=== PATIENT | female | born 1955 | race Caucasian/White ===

== ENCOUNTER → 2024-01-08 13:48 | Outpatient (REF) | payer BC, SELFPAY | LOC: HWRAD 13:48 | PROVIDERS: ATTENDING PHYSICIAN Internal Medicine Critical Care Medicine; FAMILY PHYSICIAN Family Medicine | DX: J44.9 Chronic obstructive pulmonary disease, unspecified (principal); R06.09 Other forms of dyspnea; Z95.2 Presence of prosthetic heart valve | CPT/HCPCS: 71046 ==

== ENCOUNTER 2024-03-12 17:39 | Inpatient (IN) | payer BC, MEDICARE, SELFPAY ==
[2024-03-12] VITALS (14 sets, daily range): BP systolic 96–151; BP diastolic 58–93; BMI 18.9
[2024-03-12 12:23] LABS: % Basophils 0.9 % (0-2); % Eosinophils 1.5 % (0-6); % Immature Granulocytes 0.7 % (0-0.5); % Lymphocytes 20.1 % (20.5-51.1); % Monocytes 9.4 % (1.7-9.3); % Neutrophils 67.4 % (42.2-75.2); Absolute Basophils 0.1 10^3/uL (0-0.2); Absolute Eosinophils 0.1 10^3/uL (0-0.7); Absolute Immature Granulocytes 0.1 10^3/uL (0-0.05); Absolute Lymphocytes 1.9 10^3/uL (1.2-3.4); Absolute Monocytes 0.9 10^3/uL (0.1-0.6); Absolute Neutrophils 6.3 10^3/uL (1.4-6.5); Hematocrit 33.3 % (37.0-47.0); Mean Corpuscular Hgb 29.7 pg (27.0-31.0); Mean Platelet Volume 7.9 fL (7.4-10.4); Nucleated Red Blood Cells % 0 %; Platelet Count 302 10^3/uL (130-400); Red Cell Dist. Width 13.4 % (11.5-14.5); White Blood Cell Count 9.4 10^3/uL (4.8-10.8)
[2024-03-12 12:43] LABS: ALT (SGPT) 13 U/L (0-35); AST (SGOT) 30 U/L (14-36); Albumin 3.9 g/dl (3.5-5.0); Alkaline Phosphatase 134 U/L (38-126); Blood Urea Nitrogen 13 mg/dl (7-17); Carbon Dioxide 22 mmol/L (22-30); Chloride 105 mmol/L (98-107); Estimated Creatinine Clearance 60 ml/min; Glucose 118 mg/dl (70-99); Potassium 4.5 mmol/L (3.5-5.1); Sodium 132 mmol/L (135-145); Total Bilirubin 0.5 mg/dl (0.2-1.3); Total Protein 6.6 g/dl (6.3-8.2); eGFR > 60.00
[2024-03-12 12:46] LABS: Troponin I 0.021 ng/ml
--- NOTE | 2024-03-12 12:47 | ED.GENMED ---
History of Present Illness
<ANUM Garcia - Last Filed: 03/12/24 18:27>
General
Chief Complaint: Chest Pain
Source: patient
Exam Limitations: none
Time Seen by Provider: 03/12/24 12:27
Nursing documentation reviewed up to this point in time: agreed with
Travel History
Have you had any contact with someone who has COVID-19?: No
Do you have any symptoms of coronavirus? Fever > 100 degrees, chills, cough, shortness of breath, sore throat, loss of taste or smell, muscle aches, or headache?: No
History of Present Illness
History of Present Illness:
Patient is a 68-year-old female with past medical history of COPD mitral valve replacement August 2023, TIA hypertension presents to the ER for evaluation of chest pain. She reports throughout the night last night she had intermittent chest
tightness and then at 11 AM while at work she developed again left-sided chest pain that went through to her left shoulder area. 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 She was sweaty nauseous and short of breath with
symptoms. She was brought by EMS and given fentanyl Zofran and baby aspirin along with nitroglycerin. She does not feel the nitroglycerin helped her pain.
Past History
<ANUM Garcia - Last Filed: 03/12/24 18:27>
Past History
ED Past Medical History: COPD, Valvular disease (Mitral regurgitation, mitral stenosis) and Psychiatric (anxiety/depression)
ED Past Surgical History: Gynecological (hysterectomy) and Orthopedic (knee)
Social History
Tobacco: Smoker
Alcohol: None
Drug: None
Living: with family
Review of Systems
<ANUM Garcia - Last Filed: 03/12/24 18:27>
Review of Systems
Allergies reviewed?: Yes
All Other Systems: ROS reviewed and negative except as documented in HPI and ROS
Constitutional: Reports no symptoms; Denies fever, fatigue or chills
EENT: Reports no symptoms
Respiratory: Reports trouble breathing
Cardiac: Reports chest pain
ABD/GI: Reports nausea
: Reports no symptoms
Musculoskeletal: Reports no symptoms
Skin: Reports no symptoms
Neurological: Reports no symptoms
Psychiatric: Reports no symptoms
Phy Exam
<ANUM Garcia - Last Filed: 03/12/24 18:27>
General Physical Exam
General Presentation: no apparent distress
General age: appears stated age
General Skin: warm and dry
General Habitus: elderly
General Mental: alert
General Hydration: appears well hydrated
Cardiovascular Exam
Cardiovascular Exam: regular rate/rhythm, no murmur and normal peripheral pulses
Pulmonary Exam
Pulmonary Exam: lungs clear and no respiratory distress
Neurological Exam
Neurological Exam: alert and oriented x3
Musculoskeletal Exam
Musculoskeletal Exam: full ROM
Skin Exam
Skin Exam: normal color and warm/dry
Psychiatric Exam
Psychiatric Exam: normal mood/affect
Scores
<ANUM Garcia - Last Filed: 03/12/24 18:27>
Heart Score for Chest Pain Patients
STEMI patient?: Not applicable
Course
<ANUM Garcia - Last Filed: 03/12/24 18:27>
Orders/Labs/Results
Orders:
Orders
03/12/24 12:11
Electrocardiogram (*1) Urgent
Reason for Study: Chest Pain
Cardiac Monitoring- Treatment ONCE
EKG- Treatment ONCE
IV Insert/Care/Rem.- Treatment PRN
O2 Therapy [RESP] Urgent
Titrate/Wean O2 to maintain O2 sat greater than (%): 90
Special Instructions: Maintain sats >/=90%
Pulse Ox/spot Check [RESP] Urgent
Quantity: 1
Special Instructions: ON ROOM AIR
03/12/24 12:15
C-Reactive Protein Urgent
Complete Blood Count/With Diff Urgent
Comprehensive Metabolic Panel Urgent
Erythrocyte Sed Rate Urgent
Troponin I Urgent
03/12/24 13:01
Ondansetron Injectable [Zofran] 4 mg IV NOW STA
03/12/24 13:12
Nitroglycerin Sublingual [Nitrostat (Sublingual)] 0.4 mg SL [id number] PRN
03/12/24 14:32
Troponin I Urgent
03/12/24 14:35
Ketorolac [Toradol] 30 mg IV NOW STA
03/12/24 14:36
Add On- LAB Urgent
Tests Added?: esr/crp
03/12/24 Dinner
Cholesterol Lowering
At Your Request: Full Participation
Cholesterol Lowering: Sodium, 2 Gram
03/12/24 15:09
Portable Chest Xray [CR Chest Portable - 1 View] Urgent
Comment:
Reason For Exam: cp
Reason Study Needs to be Portable: Other
03/12/24 15:19
Echo 2D MMode Color/Doppler Urgent
Reason for Study: cp trop up avr
Nitroglycerin 100 mg/250 ml [Nitroglycerin Premix] 100 mg in 250 ml IV NOW
Initial dose in mcg/min, then titrate:: 5
Titrate to keep:: SBP < 160 mmHg
Titrate by mcg/min:: 5 mcg/min, may increase by 10 mcg/min if dose > 20 mcg/min
Frequency of titrations (minutes):: every 3-5 minutes
Maximum dose in mcg/min:: 200
Begin to taper infusion when:: Remained at goal for 2hrs
Taper by mcg/min:: 5 mcg/min
Frequency of taper (minutes) if patient maintains goal:: 30
Taper to off?: Yes
If infusion off & no longer maintaining goal:: Contact Provider
03/12/24 15:22
Heparin 3,000 units IV NOW STA
03/12/24 15:[address] Non Medication Order As Directed
Physician Order: PTT 6 hours after initial start of Heparin infusion
Above order entered?: Yes
03/12/24 15:30
Heparin 46643 Units/250 ml 25,000 units in 250 ml IV PER PROTOCOL
Weight to be used for heparin protocol in kilograms (kg):: 49.8
Protocol:: Cardiac Tx/Acute Coronary
PTT Goal Range to be used:: PTT 73 to 111 seconds
Order type:: Initial
INITIAL Infusion Dose (UNITS/KG/hr) & then follow protocol:: 15 units/kg/hr
Infusion Dose in UNITS/hr & then follow protocol (UNITS/hr):: 750
INFUSION RATE in mL/hr & then follow protocol (mL/hr):: 7.5
PTT less than or equal to 64 seconds:: Increase rate by 200 units/hr (+ 2 mL/hr)
PTT 64.1 to 72.9 seconds:: Increase rate by 100 units/hr (+ 1 mL/hr)
PTT 73 to 111 seconds:: Target Range. No change in rate.
PTT 111.1 to 130.9 seconds:: Decrease rate by 100 units/hr (- 1 mL/hr)
PTT 131 to 199.9 seconds:: HOLD for 1 hr. Then decrease rate by 200 units/hr (- 2 mL/hr)
PTT greater than or equal to 200 seconds:: HOLD for 2 hrs & Notify Provider. Then decrease by 200 units/hr (-
2 mL/hr)
Lab follow-up:: Each change, PTT q6h until 2 consecutive are therapeutic. Then PTT
daily.
03/12/24 15:37
PTT Urgent
Comment: Obtain baseline before beginning heparin infusion if not already collected
03/12/24 15:45
Heparin 1000 Units/500 ml [Heparin] 1,000 units in 500 ml .ROUTE .STK-MED
Heparin Sodium,Porcine/Ns/Pf [Heparin 2000 Units/1000 ml] 2,000 unit in 1,000 ml .ROUTE .STK-MED
Lidocaine HCl/Pf [Xylocaine-Mpf 1% Vial] 50 mg .ROUTE .STK-MED ONE
Nitroglycerin [Tridil] 1,500 mcg .ROUTE .STK-MED ONE
Verapamil Injectable [Isoptin/Verapamil Injection] 5 mg .ROUTE .STK-MED ONE
03/12/24 15:49
Fentanyl Citrate/Pf [Sublimaze] 100 mcg .ROUTE .STK-MED ONE
Midazolam HCl [Versed] 2 mg .ROUTE .STK-MED ONE
03/12/24 15:50
Heparin 10,000 units .ROUTE .STK-MED ONE
03/12/24 16:05
Diphenhydramine [Benadryl] 25 mg IV NOW STA
Hydrocortisone Sod Succinate [Solu-Cortef] 200 mg IV NOW STA
03/12/24 16:42
Aspirin Chewable [Low Strength Aspirin] 243 mg .ROUTE .STK-MED ONE
03/12/24 16:53
Admit Patient As Directed
Co-Sign Provider:
Level of Care: Inpatient admission
Assign to:: IVU
Physician / Group: Aimee Mock
Diagnosis: Chest pain
Reason for Hospitalization: chest pain, cardiac cath
Expected length of stay greater than two midnights?: Yes
ELOS- Estimated Length of Stay in days: 2
I certify the patient meets the requirements for IP care: Yes
VTE Contraindication Routine
VTE Mechanical Device Contraindication: Low Risk- LOS < 2 days
Pharmocologic Contraindication: Low Risk- LOS < 2 days
Risk assessment completed and pt is low risk: Yes
03/12/24 16:57
Acetaminophen [Tylenol] 650 mg PO Q4HPRN PRN
Activity As Directed
Activity Level: Out of Bed- Ad Mini
Activity Frequency: Ad Mini
Design Supervisor Procedure As Directed
Cardiac Cath Procedure: cardiac catheterization
Notify MD As Directed
Notify physician if: immediately for chest pain or bleeding from access site(s)
Radial Artery Hemostasis Method As Directed
Instructions:: 3 mL out at 1 hour post placement of band
3 mL out at 1 1/2 hours post placement of band
3 mL out at 2 hours post placement of band
Off at 2 1/2 hours post placement of band
If any oozing or hemotoma occurs:: re-inflate band and call provider
Site Checks As Directed
Check access site for bleeding/hematoma: Yes
Comment: on arrival, Q15min x4, Q30min x2, Q1 hr x2, Q2 hr x2, Q4 hr or per
protocol
Vascular Checks As Directed
Location: distal to access site - pulse check
Frequency: Other
Comment: on arrival, Q15min x4, Q30min x2, Q1 hr x2, Q2 hr x2, Q4 hr or per protocol
Vital Signs As Directed
Frequency: Other
Additional Instructions:: on arrival, Q15min x4, Q30min x2, Q1 hr x2, Q2 hr x2, then Q4 hr or per unit
protocol
03/12/24 17:00
0.9% Sodium Chloride 1000 ml [Nss] 1,000 ml IV PER PROTOCOL
Infusion rate in mL/kg/hr:: 1.5
Infusion rate in mL/hr:: 75
Duration of infusion (hours):: 3
03/13/24 06:00
Basic Metabolic Panel IN AM
Cardiovascular Evaluation IN AM
Complete Blood Count/No Diff IN AM
Abnormal Lab Results
03/12/24 03/12/24
12:15 14:32
RBC 3.70 L 10^6/uL
(4.20-5.40)
Hgb 11.0 L g/dL
(12.0-16.0)
Hct 33.3 L %
(37.0-47.0)
Abs Immat Gran (auto) 0.1 H 10^3/uL
(0-0.05)
Absolute Monos (auto) 0.9 H 10^3/uL
(0.1-0.6)
Immature Gran % 0.7 H %
(0-0.5)
Lymphocytes % 20.1 L %
(20.5-51.1)
Monocytes % 9.4 H %
(1.7-9.3)
Sodium 132 L mmol/L
(135-145)
Glucose 118 H mg/dl
(70-99)
Alkaline Phosphatase 134 H U/L
(38-126)
Troponin I 0.692 H* D ng/ml
03/12/24 12:15
03/12/24 12:15
Vital Signs
Initial and Last Documented VS:
Initial Vital Signs
Temp Pulse Resp BP Pulse Ox
97.9 F 75 15 151/93 100
03/12/24 12:04 03/12/24 12:04 03/12/24 12:04 03/12/24 12:04 03/12/24 12:04
Last Documented Vital Signs
Temp Pulse Resp BP Pulse Ox
97.9 F 70 19 131/84 95
03/12/24 12:04 03/12/24 15:45 03/12/24 15:45 03/12/24 15:00 03/12/24 18:14
Instrument Lens Grinder Apprentice consulted with Physician
Instrument Lens Grinder Apprentice consulted with physician?: Yes
Name of Physician Consulted: Lanette
<Kenroy Myrick, DO - Last Filed: 03/12/24 15:16>
Orders/Labs/Results
Orders:
Orders
03/12/24 12:11
Electrocardiogram (*1) Urgent
Reason for Study: Chest Pain
Cardiac Monitoring- Treatment ONCE
EKG- Treatment ONCE
IV Insert/Care/Rem.- Treatment PRN
O2 Therapy [RESP] Urgent
Titrate/Wean O2 to maintain O2 sat greater than (%): 90
Special Instructions: Maintain sats >/=90%
Pulse Ox/spot Check [RESP] Urgent
Quantity: 1
Special Instructions: ON ROOM AIR
03/12/24 12:15
C-Reactive Protein Urgent
Complete Blood Count/With Diff Urgent
Comprehensive Metabolic Panel Urgent
Erythrocyte Sed Rate Urgent
Troponin I Urgent
03/12/24 13:01
Ondansetron Injectable [Zofran] 4 mg IV NOW STA
03/12/24 13:12
Nitroglycerin Sublingual [Nitrostat (Sublingual)] 0.4 mg SL [id number] PRN
03/12/24 14:32
Troponin I Urgent
03/12/24 14:35
Ketorolac [Toradol] 30 mg IV NOW STA
03/12/24 14:36
Add On- LAB Urgent
Tests Added?: esr/crp
03/12/24 Dinner
Cholesterol Lowering
At Your Request: Full Participation
Cholesterol Lowering: Sodium, 2 Gram
03/12/24 15:09
Portable Chest Xray [CR Chest Portable - 1 View] Urgent
Comment:
Reason For Exam: cp
Reason Study Needs to be Portable: Other
03/12/24 15:19
Echo 2D MMode Color/Doppler Urgent
Reason for Study: cp trop up avr
Nitroglycerin 100 mg/250 ml [Nitroglycerin Premix] 100 mg in 250 ml IV NOW
Initial dose in mcg/min, then titrate:: 5
Titrate to keep:: SBP < 160 mmHg
Titrate by mcg/min:: 5 mcg/min, may increase by 10 mcg/min if dose > 20 mcg/min
Frequency of titrations (minutes):: every 3-5 minutes
Maximum dose in mcg/min:: 200
Begin to taper infusion when:: Remained at goal for 2hrs
Taper by mcg/min:: 5 mcg/min
Frequency of taper (minutes) if patient maintains goal:: 30
Taper to off?: Yes
If infusion off & no longer maintaining goal:: Contact Provider
03/12/24 15:22
Heparin 3,000 units IV NOW STA
03/12/24 15:[address] Non Medication Order As Directed
Physician Order: PTT 6 hours after initial start of Heparin infusion
Above order entered?: Yes
03/12/24 15:30
Heparin 48775 Units/250 ml 25,000 units in 250 ml IV PER PROTOCOL
Weight to be used for heparin protocol in kilograms (kg):: 49.8
Protocol:: Cardiac Tx/Acute Coronary
PTT Goal Range to be used:: PTT 73 to 111 seconds
Order type:: Initial
INITIAL Infusion Dose (UNITS/KG/hr) & then follow protocol:: 15 units/kg/hr
Infusion Dose in UNITS/hr & then follow protocol (UNITS/hr):: 750
INFUSION RATE in mL/hr & then follow protocol (mL/hr):: 7.5
PTT less than or equal to 64 seconds:: Increase rate by 200 units/hr (+ 2 mL/hr)
PTT 64.1 to 72.9 seconds:: Increase rate by 100 units/hr (+ 1 mL/hr)
PTT 73 to 111 seconds:: Target Range. No change in rate.
PTT 111.1 to 130.9 seconds:: Decrease rate by 100 units/hr (- 1 mL/hr)
PTT 131 to 199.9 seconds:: HOLD for 1 hr. Then decrease rate by 200 units/hr (- 2 mL/hr)
PTT greater than or equal to 200 seconds:: HOLD for 2 hrs & Notify Provider. Then decrease by 200 units/hr (-
2 mL/hr)
Lab follow-up:: Each change, PTT q6h until 2 consecutive are therapeutic. Then PTT
daily.
03/12/24 15:37
PTT Urgent
Comment: Obtain baseline before beginning heparin infusion if not already collected
03/12/24 15:45
Heparin 1000 Units/500 ml [Heparin] 1,000 units in 500 ml .ROUTE .STK-MED
Heparin Sodium,Porcine/Ns/Pf [Heparin 2000 Units/1000 ml] 2,000 unit in 1,000 ml .ROUTE .STK-MED
Lidocaine HCl/Pf [Xylocaine-Mpf 1% Vial] 50 mg .ROUTE .STK-MED ONE
Nitroglycerin [Tridil] 1,500 mcg .ROUTE .STK-MED ONE
Verapamil Injectable [Isoptin/Verapamil Injection] 5 mg .ROUTE .STK-MED ONE
03/12/24 15:49
Fentanyl Citrate/Pf [Sublimaze] 100 mcg .ROUTE .STK-MED ONE
Midazolam HCl [Versed] 2 mg .ROUTE .STK-MED ONE
03/12/24 15:50
Heparin 10,000 units .ROUTE .STK-MED ONE
03/12/24 16:05
Diphenhydramine [Benadryl] 25 mg IV NOW STA
Hydrocortisone Sod Succinate [Solu-Cortef] 200 mg IV NOW STA
03/12/24 16:42
Aspirin Chewable [Low Strength Aspirin] 243 mg .ROUTE .STK-MED ONE
03/12/24 16:53
Admit Patient As Directed
Co-Sign Provider:
Level of Care: Inpatient admission
Assign to:: IVU
Physician / Group: Aimee Mock
Diagnosis: Chest pain
Reason for Hospitalization: chest pain, cardiac cath
Expected length of stay greater than two midnights?: Yes
ELOS- Estimated Length of Stay in days: 2
I certify the patient meets the requirements for IP care: Yes
VTE Contraindication Routine
VTE Mechanical Device Contraindication: Low Risk- LOS < 2 days
Pharmocologic Contraindication: Low Risk- LOS < 2 days
Risk assessment completed and pt is low risk: Yes
03/12/24 16:57
Acetaminophen [Tylenol] 650 mg PO Q4HPRN PRN
Activity As Directed
Activity Level: Out of Bed- Ad Mini
Activity Frequency: Ad Mini
Design Supervisor Procedure As Directed
Cardiac Cath Procedure: cardiac catheterization
Notify MD As Directed
Notify physician if: immediately for chest pain or bleeding from access site(s)
Radial Artery Hemostasis Method As Directed
Instructions:: 3 mL out at 1 hour post placement of band
3 mL out at 1 1/2 hours post placement of band
3 mL out at 2 hours post placement of band
Off at 2 1/2 hours post placement of band
If any oozing or hemotoma occurs:: re-inflate band and call provider
Site Checks As Directed
Check access site for bleeding/hematoma: Yes
Comment: on arrival, Q15min x4, Q30min x2, Q1 hr x2, Q2 hr x2, Q4 hr or per
protocol
Vascular Checks As Directed
Location: distal to access site - pulse check
Frequency: Other
Comment: on arrival, Q15min x4, Q30min x2, Q1 hr x2, Q2 hr x2, Q4 hr or per protocol
Vital Signs As Directed
Frequency: Other
Additional Instructions:: on arrival, Q15min x4, Q30min x2, Q1 hr x2, Q2 hr x2, then Q4 hr or per unit
protocol
03/12/24 17:00
0.9% Sodium Chloride 1000 ml [Nss] 1,000 ml IV PER PROTOCOL
Infusion rate in mL/kg/hr:: 1.5
Infusion rate in mL/hr:: 75
Duration of infusion (hours):: 3
03/13/24 06:00
Basic Metabolic Panel IN AM
Cardiovascular Evaluation IN AM
Complete Blood Count/No Diff IN AM
Abnormal Lab Results
03/12/24 03/12/24
12:15 14:32
RBC 3.70 L 10^6/uL
(4.20-5.40)
Hgb 11.0 L g/dL
(12.0-16.0)
Hct 33.3 L %
(37.0-47.0)
Abs Immat Gran (auto) 0.1 H 10^3/uL
(0-0.05)
Absolute Monos (auto) 0.9 H 10^3/uL
(0.1-0.6)
Immature Gran % 0.7 H %
(0-0.5)
Lymphocytes % 20.1 L %
(20.5-51.1)
Monocytes % 9.4 H %
(1.7-9.3)
Sodium 132 L mmol/L
(135-145)
Glucose 118 H mg/dl
(70-99)
Alkaline Phosphatase 134 H U/L
(38-126)
Troponin I 0.692 H* D ng/ml
03/12/24 12:15
03/12/24 12:15
Vital Signs
Initial and Last Documented VS:
Initial Vital Signs
Temp Pulse Resp BP Pulse Ox
97.9 F 75 15 151/93 100
03/12/24 12:04 03/12/24 12:04 03/12/24 12:04 03/12/24 12:04 03/12/24 12:04
Last Documented Vital Signs
Temp Pulse Resp BP Pulse Ox
97.9 F 70 19 131/84 95
03/12/24 12:04 03/12/24 15:45 03/12/24 15:45 03/12/24 15:00 03/12/24 18:14
<ANUM Garcia - Last Filed: 03/12/24 18:27>
MDM/Problems Addressed
Differential Diagnosis Includes:
Not limited to acute coronary syndrome
MDM/Problems Addressed:
1525: Patient is a 68-year-old female with history of mitral valve replacement in September 2023 with clean coronary arteries prior to that presents with chest pain. Patient complains of chest pain that she had off and on last night prior to arrival
this morning while working. She complains of nausea diaphoresis shortness of breath with the. She presented with discomfort here in the ER EMS gave her fentanyl and aspirin. She was given nitroglycerin here in the ER. She had initial troponin of
0.021 however repeat troponin 0.692. No acute elevation on EKG T wave seems slightly peaked the patient's room potassium.
No recent fever illness. she had a cow valve not anticoagulated. case d/c w/ DR Myrick who evaluated patient. Patient was given nitroglycerin which did bring patient's pain to a 3/10. Case discussed with Dr. Gruber . Nitroglycerin iv drip
and iv heparin drip ordered . cardiology to eval.
1624: Pt was seen by cardiology who d/c w/ interventional cardiology
Chronic conditions affecting care:
Mitral valve repair history of COPD history former smoker
<ANUM Garcia - Last Filed: 03/12/24 18:27>
*Radiology
Radiology exam reviewed: radiology read reviewed
*Pulse Oximetry
Patient hypoxic: no
*EKG
Heart Rate: 75
Rate: normal
Rhythm: sinus
Ischemia: no ischemia
Data Reviewed
Review of Other/Old Records Reveals: Other (Cardiac catheter 2022: Severe mitral stenosis normal coronary arteries echo and TYRA suggestive of severe mitral stenosis and severe mitral regurg)
<Kenroy Myrick DO - Last Filed: 03/12/24 15:16>
*Critical Care Note
Total Time (30-74mins, 75-104mins- exclusive of procedures): 30
ED Attending Note
<ANUM Garcia - Last Filed: 03/12/24 18:27>
-
Portions of this chart may have been created with voice recognition software.� Occasional wrong word or��sound alike� substitutions may have occurred due to the inherent limitations of voice recognition software.
<Kenroy Myrick DO - Last Filed: 03/12/24 15:16>
ED Attending Note
Patient seen and examined by attending physician: Yes
I performed the substantive portion of visit, reviewed & personally made and approve the management plan that is documented in note by myself or POONAM.: Yes
ED Attending Note:
Seen with LOG HANDLER examined independently 68-year-old female status post valve surgery records reviewed clean coronaries prior to her valve surgery, presents with some fatigue, patient states she is never quite been right since the surgery today developed
some sharp pain in her chest into her left arm had outpatient surgery on her thumb by Dr. Schmidt yesterday
EKG noted first troponin noted repeat pending chest x-ray pending, family asking about an echo which is not unreasonable
Will ask LOG HANDLER to contact cardiology service patient is a patient of Dr. Fowler
Discharge Plan
Departure
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
Date of Disposition: 03/12/24
Time of Disposition: 17:07
Admit to: labor gang supervisor
Admit to doctor: hospitalist
Presentation/result/management discussed w/ accepting MD/DO: Hospitalist
Patient with high blood pressure during this ER visit?: Yes
Condition: Fair
Covid-19: Not Applicable
Discharge Problem:
Non-ST elevation SD (NSTEMI)
Interventions
Interventions:
*Risk Screen - Suicide Last Done: 03/12/24 17:58
*General Assessment Last Done: 03/12/24 12:04
*Neglect/Abuse Screening Last Done: 03/12/24 12:04
ED- Fall Risk Assessment Last Done: 03/12/24 12:11
*ED COVID-19 Vaccine History Last Done: 03/12/24 17:58
*Nursing Disposition Last Done: 03/12/24 16:37
ED- Cardiac Assessment Last Done: 03/12/24 12:11
[2024-03-12] MEDS: ZOFRAN 4 MG IV (13:07)
[2024-03-12] MEDS: NITROSTAT (SUBLINGUAL) 0.400000000000000022 MG SL (13:17)
[2024-03-12] MEDS: TORADOL 30 MG IV (14:39)
[2024-03-12 14:49] LABS: Erythrocyte Sed Rate 11 mm/hour (0-20)
[2024-03-12 15:08] LABS: Troponin I 0.692 ng/ml
--- NOTE | 2024-03-12 15:41 | CON.CAR ---
Addendum entered and electronically signed by Aimee Mock DO 03/12/24 18:25:
Left heart catheterization reviewed with Dr. Loera. New apical occlusion of the LAD. Otherwise, coronary anatomy remained stable. Plan to resume IV heparin tonight without bolus. Will transition IV heparin to Eliquis 5 mg twice daily tomorrow.
Continue aspirin. Trend troponin levels. Check lipid profile. Plan for TYRA Friday.
Original Note:
Consultation
Consultation Request
Date/Time Consultation Requested: 03/12/2024
Date/Time Consultation Performed: 03/12/2024
Requesting Provider: Dr. Davila
Performing Provider: Dr. Mock
Reason for Consultation: Chest pain
Medical History
-
Chief Complaint: Chest pain
History of Present Illness:
I had the pleasure to meet Maxine Montez in ED bed 24 after she presented to [facility] ED by EMS for chest pain. Maxine follows with my colleague, Dr. Fowler. She is a 68-year-old female she is a 68-year-old female with mixed
pathology, severe mitral stenosis and insufficiency status post mitral valve replacement #29 mm MITRIS RESILIA valve)/(Placement of CV 3 [place]-Fredi to support the posterior medial papillary muscle head), by Dr. Christianson on 09/23/23. Postop she had
pericarditis which resolved. No history of atrial fibrillation but did she did have postop junctional rhythm which resolved. Preoperative cardiac catheterization September 05, [address] Loera found a right dominant system with no obstructive
coronary artery disease. The LAD wraps completely around the inferior wall. Minor luminal irregularities of her ramus. Minor luminal irregularities of a moderate to large caliber dominant RCA. She does have a history of severe atherosclerotic
disease of thoracic aorta, chronic diastolic heart failure secondary to valvular heart disease, severe COPD with [id number] smoking history who quit in April 2023 and follows routinely with Dr. Eddy, hypertension, dyslipidemia, and TIA with
aphasia in 2019. Recently she underwent cyst resection on her left thumb. She has been in her usual state of health until evening when she was woken from sleep with severe chest pain associated with nausea and diaphoresis. Chest pain
lasted throughout the night however she states it was resolved when she woke up this morning. Since the pain had resolved she decided to go to her job at [employer]. While moving close from racks at [employer] she again developed severe 10 out of
10 chest pain. Pain was substernal with radiation to the neck and associated with nausea, dizziness and diaphoresis. She received aspirin by EMS prior to arrival in the emergency department along with nitroglycerin. Nitroglycerin did not
significantly improve her symptoms. She did have some symptom relief with Toradol. She is still 2 out of 10 chest pain with resolved nausea.
PMHx:
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
-Post op anemia, improved status post transfusion
-Chronic HFpEF
-Severe pulm HTN
-HTN
-HLD
-History of TIA
-COPD/history of tobacco use
-Depression/anxiety
Past Medical History
Past Medical History: Other (See HPI)
Past Surgical History: Other (See HPI)
Social History
Tobacco: Former Smoker (50+ year smoking history quit in April 2023)
Alcohol: None
Drug: None
Living: With Family
Employment: Employed (Works for [employer])
Family History
Family History: Reviewed & Not Pertinent
Allergies / Home Medications
Allergy/AdvReac Type Severity Reaction Status Date / Time
iodine [Iodine] Allergy Rash Verified 03/12/24 12:04
metronidazole [From Flagyl] Allergy Rash Verified 03/12/24 12:04
Metronidazole HCl Allergy Rash Verified 03/12/24 12:04
[From Flagyl]
oxycodone HCl [From Percocet] Allergy Vomitting Verified 03/12/24 12:04
and
hallucinations
�Medication �Instructions �Recorded �Confirmed �Type
lorazepam 0.5 mg tablet 0.25 mg PO HS Mental Health/Anxiety 11/20/18 03/12/24 History
umeclidinium 62.5 mcg-vilanterol 1 inh inhalation DAILY copd 03/20/23 03/12/24 History
25 mcg/actuation powdr for
inhalation (Anoro Ellipta)
albuterol sulfate 2.5 mg/3 mL 2.5 mg inhalation DAILY 08/27/23 03/12/24 History
(0.083 %) solution for nebulization
budesonide 0.5 mg/2 mL suspension 0.5 mg inhalation DAILY 08/27/23 03/12/24 History
for nebulization Lung/Breathing Issues
cholecalciferol (vitamin D3) 50 50 mcg PO DAILY Supplement 08/27/23 03/12/24 History
mcg (2,000 unit) capsule (Vitamin
D3)
ibandronate 150 mg tablet 150 mg PO Q30D bone health 08/27/23 03/12/24 History
acetaminophen 500 mg tablet 1,000 mg PO Q6H PRN PAIN 09/03/23 03/12/24 History
atorvastatin 40 mg tablet 40 mg PO HS High Cholesterol 09/03/23 03/12/24 History
fluoxetine 40 mg capsule 40 mg PO DAILY Mental 09/03/23 03/12/24 History
Health/Anxiety
aspirin 81 mg tablet,delayed 81 mg PO DAILY Blood Clot 09/24/23 03/12/24 History
release (Adult Aspirin Regimen) Prevention/Tx
metoprolol succinate 25 mg 12.5 mg (1/2 x 25 mg) PO DAILY 09/27/23 03/12/24 Rx
tablet,extended release 24 hr Blood pressure #90 tabs
albuterol sulfate 90 mcg/actuation 2 puff inhalation R Q4HPRN PRN 03/12/24 03/12/24 History
aerosol inhaler shortness of breath
azithromycin 250 mg tablet 250 mg PO DAILY 03/12/24 03/12/24 History
lorazepam 0.5 mg tablet 0.25 mg PO HS PRN insonmia or 03/12/24 03/12/24 History
anxiety
Review of Systems
-
History Source: Patient and Family
Constitutional: Fatigue
EENT: No Symptoms
Respiratory: Cough (Chronic cough)
Cardiac: Chest Pain and Diaphoresis
Abdomen/GI: Nausea
: No Symptoms
Musculoskeletal: No Symptoms
Skin: No Symptoms
Neurological: Dizzy
Endocrine: No Symptoms
Hematologic/Lymphatic: No Symptoms
Physical Exam
Vital Signs
Temp Pulse Resp BP Pulse Ox
97.9 F 69 17 151/93 99
03/12/24 12:04 03/12/24 12:30 03/12/24 12:30 03/12/24 12:05 03/12/24 12:30
Lab Results
03/12/24 12:15
03/12/24 12:15
Troponin I 0.692 ng/ml H* D 03/12/24 14:32
ECHO 08/01/23: EF 60%, stage II diastolic dysfunction, thickened mitral leaflets with doming of anterior leaflet and MAC, severe MS with peak/mean gradient 44/22 mmHg, MVA by pressure half-time 2.0 cm�, severe MR with flow reversal in pulmonary veins,
mild TR, PAP 47 to 49 mmHg
TYRA 08/27/23: EF 60%, severely dilated left atrium, thickened mitral valve leaflets with restriction and doming of anterior mitral leaflet consistent with rheumatic mitral valve disease, mitral stenosis with elevated mitral valve gradients 25/13 mmHg
at heart rate of 76 bpm, MVA 2.2 cm� by pressure half-time, severe MR
Left heart catheterization 09/05/2023: Right dominant. Left main normal.LEFT ANTERIOR DESCENDING: The LAD arises normally from the left main and runs in the anterior interventricular groove. The LAD is a large-caliber vessel with only minor
irregularities throughout its course. The distal LAD wraps completely around the apex supplying a portion of the inferior wall. RAMUS: Minor irregularities. Small caliber vessel. CIRCUMFLEX: The circumflex is a medium caliber nondominant vessel
supplying a single sizable obtuse marginal branch which is widely patent. RIGHT CORONARY ARTERY: Moderate to large caliber dominant vessel with only mild luminal irregularities
Chest x-ray COPD with no acute abnormality, preliminary read
EKG sinus rhythm no acute ischemic changes.
Physical Exam
General: Other (Cachectic 68-year-old female currently with 2 out of 10 chest pain)
HEENT: Normocephalic, Anicteric and Moist Mucous Membranes
Respiratory: Other (Bronchovesicular breath sounds with scattered rhonchi. Clear)
Cardiac: S1/S2 and Regular Rhythm; Negative Murmur, Rub, Peripheral Edema, Calf Tenderness or JVD
GI: Soft, Non Tender, Non Distended and Normal Bowel Sounds
Skin: Warm and Dry; Negative Rash
Neuro: AO x 3 and Nonfocal/Grossly Intact
Psych: Calm
Impression / Plan
-
Scientist/Engineer: Dr. Kinney
Impression:
-ACS, NSTEMI with chest pain and abnormal cardiac troponin
-S/P Mitral valve replacement (29 mm MITRIS RESILIA valve)/(Placement of CV 3 [place]-Fredi to support the posterior medial papillary muscle head), by Dr. Christianson
-History of postop pericarditis
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
-Severe atherosclerotic disease of thoracic aorta
-Severe pulmonary hypertension secondary to valvular disease and congestive heart failure
-History of diastolic heart failure related to valvular heart disease
-LVEF 55-60% per intraop TYRA
-Recent left thumb surgery for cyst resection
-Malnourishment/cachexia
-Severe COPD; former 50 pk/yr tobacco use quit 04/2023
-Depression/Anxiety
-COVID May 2022, s/p Paxlovid
-HTN
-HLD
-[place]
-hx TIA with assoc. aphasia, 2019
-S/P ORIF right wrist, 2014.
-S/P Breast implants
-S/P Hysterectomy
Plan:
Ongoing chest pain with elevated cardiac troponin and multiple cardiac risk factors concerning for ACS
-Aspirin, IV heparin, will start IV and nitroglycerin drip
-Cardiac troponin 0.021, 0.692. Trend to peak.
-Bedside 2D echocardiogram now
-Discussed with interventional cardiology with plan to reevaluate coronary anatomy with cardiac catheterization
Status post Mitral valve replacement (29 mm MITRIS RESILIA valve)/(Placement of CV 3 [place]-Fredi to support the posterior medial papillary muscle head) for mixed rheumatic severe mitral stenosis/insufficiency 09/23/2023
-2D echocardiogram now
History of severe COPD with prior tobacco dependence
-Appears stable without active flare
History of anemia with stable hemoglobin 11 g/dL
Plan discussed with family at bedside
Data Reviewed
-
EKG: Report Reviewed by me
Radiology: Report Reviewed by me
Labs: Labs Reviewed by me
Old Records: Reviewed
[2024-03-12] MEDS: HEPARIN 25000 UNITS/250 ML IV (15:44)
[2024-03-12] MEDS: HEPARIN 3000 UNITS IV (15:45)
[2024-03-12 15:55] LABS: APTT 28.1 Sec (23.4-35.0)
[2024-03-12 16:09] LABS: C-Reactive Protein < 5.00 mg/L (0.0-10.00)
[2024-03-12] MEDS: SOLU-CORTEF 200 MG IV (16:12)
[2024-03-12] MEDS: BENADRYL 25 MG IV (16:13)
--- NOTE | 2024-03-12 17:18 | ITS.CL.CATH ---
Seismograph Helper - Catheterization
Cardiac Catheterization
Procedure Report:
LEFT HEART CATHETERIZATION
Date of Procedure: March 12, 2024
Referring: Dr. Aimee Mock
PROCEDURES:
1. Left heart catheterization with coronary and single-plane left radiography
INDICATION: This is a 68-year-old female with a past medical history notable for COPD and combined valvular heart disease with mitral stenosis and mitral regurgitation. She underwent coronary angiography in August 2023 that was notable for
nonobstructive coronary artery disease. On September 23, 2023 she underwent standard sternotomy with chordal sparing mitral valve replacement using a 29 mm MITRIS RESILIA valve. Recovery has been slow per her daughters. She now presents for
evaluation of chest discomfort beginning the evening before admission. Her initial troponin was 0.021 nad increased to 0.692 ng/ml on repeat with ongoing low grade chest discomfort. A bedside transthoracic echocardiogram was notable for a mean
mitral gradient of 3 mmHg and a new distal septal, apical and inferoapical wall motion abnormality for which she is now referred for coronary angiography.
ACCESS: Right radial artery, 5 Wolof sheath
HEMODYNAMICS : (mmHg)
AO (s/d) : 133/84
CORONARY FINDINGS
DOMINANCE: Right
LEFT MAIN: Normal
LEFT ANTERIOR DESCENDING: The LAD arises normally from the left main and runs in the anterior interventricular groove. The proximal through distal LAD remained widely patent. The apical LAD becomes subtotally occluded with a small degree of
recanalization as the vessel wraps around the apex.
RAMUS: Small with minor irregularities
CIRCUMFLEX: The circumflex is a medium caliber nondominant vessel that remains angiographically stable with minor luminal irregularities of the single sizable obtuse marginal branch
RIGHT CORONARY ARTERY: The right coronary artery is a moderate caliber dominant vessel with mild luminal irregularities. The PDA and posterolateral branch remain widely patent.
VENTRICULOGRAPHY: Not done
RADIATION SUMMARY: Fluoro Time (min): 1.9, Dose (mGy): 182.6, DAP (Gy.cm2) : 15.8
Closure Device: TR band
CONCLUSIONS
1. Apical occlusion of the LAD. Otherwise, coronary anatomy remained stable
RECOMMENDATIONS
1. May consider oral anticoagulation for several months given recent valve surgery
2. Continue aspirin
3. Trend troponin levels
4. Check fasting lipid profile
Copy to: Dr. Keagan Fowler
--- NOTE | 2024-03-12 17:49 | PTCARENOTE ---
Assumed care of pt upon tsf from CCL post C. Pt arrives awake and alet, Ox3. Right radial band intact with 13 cc's in band. CMS normal throughout extremity. VVS, CM shows NSR 70's, POX 96% on RA. Pt denies any pain or discomfort at this time.
Will continue to monitor closely.
[2024-03-12] MEDS: NSS 1000 IV (17:55)
[2024-03-12] MEDS: LIPITOR 40 MG PO (18:22)
--- NOTE | 2024-03-12 20:00 | PTCARENOTE ---
NSR. VSS. Room air. TR band remains inplace to Right radial. Neurovasc assessment WNL. Air removed slowly from TR band d/t bleeding.
[2024-03-13 04:19] VITALS: BP 109/66
[2024-03-13 04:52] LABS: Hematocrit 36.6 % (37.0-47.0); Hemoglobin 11.9 g/dL (12.0-16.0); Mean Corp Hgb Conc. 32.5 g/dL (33.0-37.0); Mean Corpuscular Hgb 29.8 pg (27.0-31.0); Mean Corpuscular Volume 91.7 fL (81.0-99.0); Mean Platelet Volume 8.2 fL (7.4-10.4); Platelet Count 290 10^3/uL (130-400); Red Blood Cell Count 3.99 10^6/uL (4.20-5.40); Red Cell Dist. Width 13.4 % (11.5-14.5); White Blood Cell Count 12.2 10^3/uL (4.8-10.8)
[2024-03-13 05:16] LABS: Blood Urea Nitrogen 18 mg/dl (7-17); Calcium 9.1 mg/dl (8.4-10.2); Carbon Dioxide 20 mmol/L (22-30); Chloride 106 mmol/L (98-107); Estimated Creatinine Clearance 52 ml/min; Glucose 123 mg/dl (70-99); HDL Cholesterol 65 mg/dl; LDL Cholesterol, Calculated 26 mg/dl; Potassium 5.1 mmol/L (3.5-5.1); Sodium 134 mmol/L (135-145); Total Cholesterol 105 mg/dl (50-199); Triglyceride 70 mg/dl (10-149); Very Low Density Lipoprotein 14 mg/dl (0-30); eGFR > 60.00
[2024-03-13 07:02] VITALS: BP 106/64
[2024-03-13] MEDS: PROTONIX 40 MG PO (08:05)
[2024-03-13] MEDS: LOW STRENGTH ASPIRIN 81 MG PO (08:05)
--- NOTE | 2024-03-13 08:52 | PTCARENOTE ---
Assumed care of pt from night RN. Pt received awake and alert, Ox3. VSS, CM shows NSR 60-70's, POX 94% on RA. Right radial site CDI with normal CMS throughout limb. Pt denies any pain or discomfort at this time, will continue to monitor closely.
[2024-03-13] MEDS: ELIQUIS 5 MG PO ×2 (09:34→20:00)
[2024-03-13 10:34] LABS: Glycohemoglobin (HgbA1c) 5.8 % (4.0-5.6)
[2024-03-13 11:25] VITALS: BP 95/54
[2024-03-13 16:36] VITALS: BP 114/63
--- NOTE | 2024-03-13 17:21 | W.PN.CARDCBS ---
Today's Communication / Plan
-
See plan
Impression / Plan
-
Machine Ironer: Dr. Kinney
Impression:
-ACS, NSTEMI with chest pain and abnormal cardiac troponin
-S/P Mitral valve replacement (29 mm MITRIS RESILIA valve)/(Placement of CV 3 [place]-Fredi to support the posterior medial papillary muscle head), by Dr. Christianson
-History of postop pericarditis
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
-Severe atherosclerotic disease of thoracic aorta
-Severe pulmonary hypertension secondary to valvular disease and congestive heart failure
-History of diastolic heart failure related to valvular heart disease
-LVEF 55-60% per intraop TYRA
-Recent left thumb surgery for cyst resection
-Malnourishment/cachexia
-Severe COPD; former 50 pk/yr tobacco use quit 04/2023
-Depression/Anxiety
-COVID May 2022, s/p Paxlovid
-HTN
-HLD
-[place]
-hx TIA with assoc. aphasia, 2019
-S/P ORIF right wrist, 2014.
-S/P Breast implants
-S/P Hysterectomy
Plan:
Non-STEMI/ACS with apical occlusion of LAD which previously wrapped around inferior wall
-Left heart catheterization reviewed with patient. No stent placed
-Currently chest pain-free
-Peak troponin 3.090 on 03/12 at 20:42
-Plan reviewed with interventional cardiology: Concern for thrombotic event. IV heparin transition to Eliquis and aspirin.
-Continue low-dose beta-ruslan.
-Continue statin with goal LDL less than 70 mg/dL: Lipid profile 03/13/2024: Total cholesterol 105, triglycerides 70, HDL 65, LDL 26.
-Plan for TYRA on Thursday 03/15 given recent valve to assess for cardiac source
-Monitor telemetry
-Will consider outpatient cardiac monitoring
Ischemic cardiomyopathy with new reduction in ejection fraction, EF estimated 25% with the entire apical cap akinetic
-Lasix 20 mg daily started today
-Transition outpatient Toprol succinate to carvedilol
-If blood pressure trends stable will add low-dose DELORIS inhibitor tomorrow
-Would repeat echocardiogram in 3 months
Status post Mitral valve replacement (29 mm MITRIS RESILIA valve)/(Placement of CV 3 [place]-Fredi to support the posterior medial papillary muscle head) for mixed rheumatic severe mitral stenosis/insufficiency 09/23/2023
-Mitral valve replacement functioning well with mean gradient 3 mmHg and no significant mitral regurgitation
Moderate atherosclerotic plaque of the aortic arch extending into the origin of the brachiocephalic vessels without stenosis and plaque of the aortic root and descending aorta on CT chest August 2023
-Continue medical therapy
History of severe COPD/emphysema with prior tobacco dependence/pulmonary hypertension
-Quit smoking in April 2023
-Recent echocardiogram with estimated pulmonary artery pressures 55 mmHg in the setting of active chest pain and evidence of diastolic dysfunction. Would repeat echocardiogram in 3 months to reassess pulmonary pressures. 2D echocardiogram
July 2023 prior to surgery with pulmonary pressures also elevated estimated 47-49% in the setting of severe MR. Right heart catheterization August 2023 with PA pressures 74/35 with a mean of 52 and a wedge pressure of 38 with large V waves.
-Appears stable without active flare
-Maintains regular outpatient follow-up with Dr. Eddy
History of anemia with stable hemoglobin 11 g/dL
Prediabetic with hemoglobin A1c 5.8% similar to June 2020
-Importance of glycemic control stressed
-If renal function remains stable we will start metformin 48 hours following catheterization
Progress Note - Machine Ironer
Subjective
Date of Service: March 13, 2024
Seen and examined. Overall feeling better this morning without chest pain. Reviewed echo and cath findings as well as plan moving forward. Patient is agreeable to transesophageal echocardiogram on Friday.
Objective
Labs:
03/13/24 04:27
03/13/24 04:27
Labs
Hgb 11.9 g/dL (12.0-16.0) L 03/13/24 04:27
Hct 36.6 % (37.0-47.0) L 03/13/24 04:27
Plt Count 290 10^3/uL (130-400) 03/13/24 04:27
APTT Cancelled 03/12/24 21:44
Sodium 134 mmol/L (135-145) L 03/13/24 04:27
Potassium 5.1 mmol/L (3.5-5.1) 03/13/24 04:27
BUN 18 mg/dl (7-17) H 03/13/24 04:27
Creatinine 0.8 mg/dL (0.6-1.0) 03/13/24 04:27
Glucose 123 mg/dl (70-99) H 03/13/24 04:27
Troponins
03/12/24 03/12/24 03/12/24
12:15 14:32 20:42
Troponin I 0.021 0.692 H* D 3.090 H* D
03/13/24 03/13/24
04: 12:30
Troponin I 2.800 H* Cancelled
Vital Signs and I&O:
Vital Signs
Temp Pulse Resp BP Pulse Ox
98.2 F 73 16 114/63 94
03/13/24 16:39 03/13/24 16:39 03/13/24 16:39 03/13/24 16:36 03/13/24 16:39
Vital Signs
Temp Pulse Resp BP Pulse Ox
98.2 F 73 16 114/63 94
03/13/24 16:39 03/13/24 16:39 03/13/24 16:39 03/13/24 16:36 03/13/24 16:39
Physical Exam
Physical Exam
General: No acute distress, AAOX3
Neck: Negative JVD
Heart: Regular, positive S1/S2, No murmur
Lungs: CTA b/l, negative wheezes/rales/rhonchi
Abd: Positive BS, NT/ND, neg rebound/rigidity/guarding
Ext: No edema. Radial site intact.
Neuro: nonfocal
[2024-03-13] MEDS: SPIRIVA RESPIMAT 2.5 MCG INH (17:59)
[2024-03-13] MEDS: PULMICORT INH (17:59)
[2024-03-13] MEDS: VENTOLIN NEBULES INH (17:59)
[2024-03-13] MEDS: STRIVERDI RESPIMAT INH (17:59)
[2024-03-13] MEDS: LASIX 20 MG PO (18:31)
[2024-03-13] MEDS: TOPROL XL 12.5 MG PO (18:32)
[2024-03-13] MEDS: VITAMIN D3 (cholecalciferol) 50 MCG PO (18:32)
[2024-03-13] MEDS: PROZAC 40 MG PO (18:32)
[2024-03-13 18:44] VITALS: BP 110/67
[2024-03-13] MEDS: ZITHROMAX 250 MG PO (20:00)
[2024-03-13] MEDS: LIPITOR 40 MG PO (20:09)
[2024-03-13] MEDS: ATIVAN 0.25 MG PO (20:09)
--- NOTE | 2024-03-13 20:24 | PTCARENOTE ---
Aox3. NSR. VSS. Right radial site WNL. Requests all PM medications @ 1999. Assessment per nursing flowsheet.
[2024-03-14] VITALS (8 sets, daily range): BP systolic 91–111; BP diastolic 51–66; BMI 18.9
[2024-03-14 04:38] LABS: % Basophils 0.9 % (0-2); % Eosinophils 1.3 % (0-6); % Immature Granulocytes 0.9 % (0-0.5); % Lymphocytes 22.3 % (20.5-51.1); % Monocytes 8.5 % (1.7-9.3); % Neutrophils 66.1 % (42.2-75.2); Absolute Basophils 0.1 10^3/uL (0-0.2); Absolute Eosinophils 0.2 10^3/uL (0-0.7); Absolute Immature Granulocytes 0.1 10^3/uL (0-0.05); Absolute Lymphocytes 2.9 10^3/uL (1.2-3.4); Absolute Monocytes 1.1 10^3/uL (0.1-0.6); Absolute Neutrophils 8.5 10^3/uL (1.4-6.5); Hematocrit 36.2 % (37.0-47.0); Hemoglobin 11.8 g/dL (12.0-16.0); Mean Corp Hgb Conc. 32.6 g/dL (33.0-37.0); Mean Corpuscular Hgb 29.6 pg (27.0-31.0); Mean Corpuscular Volume 90.7 fL (81.0-99.0); Nucleated Red Blood Cells % 0 %; Platelet Count 313 10^3/uL (130-400); Red Blood Cell Count 3.99 10^6/uL (4.20-5.40); White Blood Cell Count 12.8 10^3/uL (4.8-10.8)
[2024-03-14 05:16] LABS: Blood Urea Nitrogen 18 mg/dl (7-17); Calcium 9.2 mg/dl (8.4-10.2); Carbon Dioxide 27 mmol/L (22-30); Chloride 106 mmol/L (98-107); Estimated Creatinine Clearance 46 ml/min; Glucose 104 mg/dl (70-99); Sodium 137 mmol/L (135-145); eGFR > 60.00
[2024-03-14] MEDS: PULMICORT 0.5 MG INH (08:06)
[2024-03-14] MEDS: VENTOLIN NEBULES 2.5 MG INH (08:06)
[2024-03-14] MEDS: STRIVERDI RESPIMAT 2 PUFF INH (08:07)
[2024-03-14] MEDS: SPIRIVA RESPIMAT 2.5 MCG 2 PUFF INH (08:07)
[2024-03-14] MEDS: TOPROL XL 12.5 MG PO (08:57)
[2024-03-14] MEDS: LOW STRENGTH ASPIRIN 81 MG PO (08:57)
[2024-03-14] MEDS: LASIX 20 MG PO (08:57)
[2024-03-14] MEDS: PROTONIX 40 MG PO (08:57)
[2024-03-14] MEDS: ELIQUIS 5 MG PO ×2 (08:57→19:32)
[2024-03-14] MEDS: ZITHROMAX 250 MG PO (08:57)
[2024-03-14] MEDS: PROZAC 40 MG PO (09:02)
[2024-03-14] MEDS: VITAMIN D3 (cholecalciferol) 50 MCG PO (09:02)
--- NOTE | 2024-03-14 11:24 | W.PN.CARDCBS ---
Today's Communication / Plan
-
Try to optimize medical therapy for new ischemic cardiomyopathy as able; limited by blood pressure
Plan for TYRA tomorrow 03/15/2024
Heart failure education ongoing
Impression / Plan
-
Mechanical Systems Engineer: Dr. Kinney
Impression:
-ACS, NSTEMI with chest pain and abnormal cardiac troponin
-S/P Mitral valve replacement (29 mm MITRIS RESILIA valve)/(Placement of CV 3 [place]-Fredi to support the posterior medial papillary muscle head), by Dr. Christianson
-History of postop pericarditis
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
-Severe atherosclerotic disease of thoracic aorta
-Severe pulmonary hypertension secondary to valvular disease and congestive heart failure
-History of diastolic heart failure related to valvular heart disease
-LVEF 55-60% per intraop TYRA
-Recent left thumb surgery for cyst resection
-Malnourishment/cachexia
-Severe COPD; former 50 pk/yr tobacco use quit 04/2023
-Depression/Anxiety
-COVID May 2022, s/p Paxlovid
-HTN
-HLD
-[place]
-hx TIA with assoc. aphasia, 2019
-S/P ORIF right wrist, 2014.
-S/P Breast implants
-S/P Hysterectomy
Plan:
Non-STEMI/ACS with apical occlusion of LAD which previously wrapped around inferior wall
-Left heart catheterization reviewed with patient. No stent placed
-Currently chest pain-free
-Peak troponin 3.090 on 03/12 at 20:42
-Plan reviewed with interventional cardiology: Concern for thrombotic event. IV heparin transition to Eliquis and aspirin 03/13/24.
-Continue low-dose beta-ruslan.
-Continue statin with goal LDL less than 70 mg/dL: Lipid profile 03/13/2024: Total cholesterol 105, triglycerides 70, HDL 65, LDL 26.
-Plan for TYRA on Thursday 03/15 given recent valve to assess for cardiac source
-Monitor telemetry
-Will consider outpatient cardiac monitoring
-Cardiac rehab consult on Friday
New ischemic cardiomyopathy with new reduction in ejection fraction, EF estimated 25% with the entire apical cap akinetic
-Lasix 20 mg daily started 03/13/2024
-Continue low-dose Toprol succinate
-If blood pressure trends stable will add low-dose DELORIS inhibitor tomorrow
-Would repeat echocardiogram in 3 months
-CHF diet. CHF education.
Status post Mitral valve replacement (29 mm MITRIS RESILIA valve)/(Placement of CV 3 [place]-Fredi to support the posterior medial papillary muscle head) for mixed rheumatic severe mitral stenosis/insufficiency 09/23/2023
-Mitral valve replacement functioning well with mean gradient 3 mmHg and no significant mitral regurgitation
Moderate atherosclerotic plaque of the aortic arch extending into the origin of the brachiocephalic vessels without stenosis and plaque of the aortic root and descending aorta on CT chest August 2023
-Continue medical therapy
History of severe COPD/emphysema with prior tobacco dependence/pulmonary hypertension
-Quit smoking in April 2023
-Recent echocardiogram with estimated pulmonary artery pressures 55 mmHg in the setting of active chest pain and evidence of diastolic dysfunction. Would repeat echocardiogram in 3 months to reassess pulmonary pressures. 2D echocardiogram
July 2023 prior to surgery with pulmonary pressures also elevated estimated 47-49% in the setting of severe MR. Right heart catheterization August 2023 with PA pressures 74/35 with a mean of 52 and a wedge pressure of 38 with large V waves.
-Appears stable without active flare
-Maintains regular outpatient follow-up with Dr. Eddy
History of anemia with stable hemoglobin 11 g/dL
Prediabetic with hemoglobin A1c 5.8% similar to June 2020
-Importance of glycemic control stressed
-If renal function remains stable we will start metformin 48 hours following catheterization
Progress Note - Mechanical Systems Engineer
Subjective
Date of Service: March 14, 2024
Seen and examined. Patient offers no complaints. Denies lightheadedness. No chest pain or pressure. Does report ongoing shortness of breath slightly improved since yesterday
Objective
Labs:
03/14/24 04:21
03/14/24 04:21
Labs
Hgb 11.8 g/dL (12.0-16.0) L 03/14/24 04:21
Hct 36.2 % (37.0-47.0) L 03/14/24 04:21
Plt Count 313 10^3/uL (130-400) 03/14/24 04:21
APTT Cancelled 03/12/24 21:44
Sodium 137 mmol/L (135-145) 03/14/24 04:21
Potassium 5.0 mmol/L (3.5-5.1) 03/14/24 04:21
BUN 18 mg/dl (7-17) H 03/14/24 04:21
Creatinine 0.9 mg/dL (0.6-1.0) 03/14/24 04:21
Glucose 104 mg/dl (70-99) H 03/14/24 04:21
Troponins
03/12/24 03/12/24 03/12/24
12:15 14:32 20:42
Troponin I 0.021 0.692 H* D 3.090 H* D
03/13/24 03/13/24
04:27 12:30
Troponin I 2.800 H* Cancelled
Vital Signs and I&O:
Vital Signs
Temp Pulse Resp BP Pulse Ox
98.0 F 69 16 111/66 93
03/14/24 11:21 03/14/24 08:57 03/14/24 11:21 03/14/24 08:57 03/14/24 11:21
Vital Signs
Temp Pulse Resp BP Pulse Ox
98.0 F 69 16 111/66 93
03/14/24 11:21 03/14/24 08:57 03/14/24 11:21 03/14/24 08:57 04/21/24 11:21
Intake & Output
03/12/24 03/13/24 03/14/24 03/15/24
06:59 06:59 06:59 06:59
Intake Total 250 / 250 480 / 480
Balance 250 / 250 480 / 480
Physical Exam
Physical Exam
General: No acute distress, AAOX3
Neck: Negative JVD
Heart: Regular, positive S1/S2, No murmur
Lungs: Bronchovesicular breath sounds decreased bilaterally without wheezes
Abd: Positive BS, NT/ND, neg rebound/rigidity/guarding
Ext: No edema. Radial site intact.
Neuro: nonfocal
--- NOTE | 2024-03-14 16:01 | PTCARENOTE ---
Patient received from nightshift RN. Patient denies pain. Fully alert and oriented. Pt has flat affect emotionally. NSR 60s. BP 106/63. Pulses palpable bilaterally in upper and lower extremities. Lungs are clear throughout, denies shortness of
breath. Pt ambulates independently to bathroom to void. Lasix given today. Tolerating meals.
[2024-03-14] MEDS: LIPITOR 40 MG PO (22:05)
[2024-03-14] MEDS: ATIVAN 0.25 MG PO (22:09)
--- NOTE | 2024-03-14 22:32 | PTCARENOTE ---
Pt rec'd at change of shift awake,alert no c/o pain. Flat affect. Sinus with prolonged QT noted on telemetry. Right radial site flotation operator. Pt aware of npo status after mn for TYRA. Ativan given at HS per pt request.
[2024-03-15] VITALS (7 sets, daily range): BP systolic 95–127; BP diastolic 53–75
[2024-03-15 05:26] LABS: Hematocrit 38.6 % (37.0-47.0); Hemoglobin 12.5 g/dL (12.0-16.0); Mean Corp Hgb Conc. 32.4 g/dL (33.0-37.0); Mean Corpuscular Hgb 29.8 pg (27.0-31.0); Mean Corpuscular Volume 91.9 fL (81.0-99.0); Mean Platelet Volume 8.2 fL (7.4-10.4); Platelet Count 304 10^3/uL (130-400); Red Cell Dist. Width 14.1 % (11.5-14.5); White Blood Cell Count 10.1 10^3/uL (4.8-10.8)
[2024-03-15 06:01] LABS: Blood Urea Nitrogen 15 mg/dl (7-17); Calcium 9.3 mg/dl (8.4-10.2); Carbon Dioxide 26 mmol/L (22-30); Chloride 105 mmol/L (98-107); Estimated Creatinine Clearance 60 ml/min; Glucose 104 mg/dl (70-99); Magnesium 2.1 mg/dl (1.6-2.3); Potassium 4.8 mmol/L (3.5-5.1); Sodium 136 mmol/L (135-145); eGFR > 60.00
[2024-03-15] MEDS: STRIVERDI RESPIMAT INH ×2 (08:08→08:43)
[2024-03-15] MEDS: VENTOLIN NEBULES 2.5 MG INH (08:08)
[2024-03-15] MEDS: PULMICORT 0.5 MG INH (08:08)
[2024-03-15] MEDS: SPIRIVA RESPIMAT 2.5 MCG INH ×2 (08:08→08:43)
[2024-03-15] MEDS: LOW STRENGTH ASPIRIN 81 MG PO (08:19)
[2024-03-15] MEDS: ELIQUIS 5 MG PO ×2 (08:19→20:04)
--- NOTE | 2024-03-15 09:30 | W.PN.CARDCBS ---
Today's Communication / Plan
-
Left heart catheterization reviewed with patient. No stent placed
Remains chest pain free. Peak trop 3.
After review with interventional cardiology, concern for thrombotic event.
Pt transitioned to Eliquis and ASA
Continue low-dose beta-ruslan.
Continue statin with goal LDL less than 70 mg/dL: Lipid profile 03/13/2024: Total cholesterol 105, triglycerides 70, HDL 65, LDL 26.
TYRA today was negative for thrombotic source.
Outpt manager monitoring
Cardiac rehab
>New ischemic cardiomyopathy with new reduction in ejection fraction, EF estimated 25% with the entire apical cap akinetic
Cont Lasix 20 mg daily started 03/13/2024
Continue low-dose Toprol succinate
Add low dose Lisinopril 2.5 mg daily.
Would repeat echocardiogram in 3 months after GDMT
HF education.
Impression / Plan
-
Offset Pressman: Dr. Kinney
Impression:
-ACS, NSTEMI with chest pain and abnormal cardiac troponin
-S/P Mitral valve replacement (29 mm MITRIS RESILIA valve)/(Placement of CV 3 [place]-Fredi to support the posterior medial papillary muscle head), by Dr. Christianson
-History of postop pericarditis
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
-Severe atherosclerotic disease of thoracic aorta
-Severe pulmonary hypertension secondary to valvular disease and congestive heart failure
-History of diastolic heart failure related to valvular heart disease
-LVEF 55-60% per intraop TYRA
-Recent left thumb surgery for cyst resection
-Malnourishment/cachexia
-Severe COPD; former 50 pk/yr tobacco use quit 04/2023
-Depression/Anxiety
-COVID May 2022, s/p Paxlovid
-HTN
-HLD
-BURNS PAIUTE
-hx TIA with assoc. aphasia, 2019
-S/P ORIF right wrist, 2014.
-S/P Breast implants
-S/P Hysterectomy
Echo March 12 2024: EF 25% with mid anteroseptal, mid septal and mid anterior and mid lateral and mid inferior and apical akinesis, s/p chordal sparing MVR with mean grad 3 mmHg.
Plan:
>Non-STEMI/ACS with apical occlusion of LAD which previously wrapped around inferior wall
Left heart catheterization reviewed with patient. No stent placed
Remains chest pain free. Peak trop 3.
After review with interventional cardiology, concern for thrombotic event.
Pt transitioned to Eliquis and ASA
Continue low-dose beta-ruslan.
Continue statin with goal LDL less than 70 mg/dL: Lipid profile 03/13/2024: Total cholesterol 105, triglycerides 70, HDL 65, LDL 26.
TYRA today was negative for thrombotic source.
Outpt manager monitoring
Cardiac rehab
>New ischemic cardiomyopathy with new reduction in ejection fraction, EF estimated 25% with the entire apical cap akinetic
Cont Lasix 20 mg daily started 03/13/2024
Continue low-dose Toprol succinate
Add low dose Lisinopril 2.5 mg daily.
Would repeat echocardiogram in 3 months after GDMT
HF education.
Status post Mitral valve replacement (29 mm MITRIS RESILIA valve)/(Placement of CV 3 [place]-Fredi to support the posterior medial papillary muscle head) for mixed rheumatic severe mitral stenosis/insufficiency 09/23/2023
-Mitral valve replacement functioning well with mean gradient 3 mmHg and no significant mitral regurgitation
Moderate atherosclerotic plaque of the aortic arch extending into the origin of the brachiocephalic vessels without stenosis and plaque of the aortic root and descending aorta on CT chest August 2023
-Continue medical therapy
History of severe COPD/emphysema with prior tobacco dependence/pulmonary hypertension
-Quit smoking in April 2023
-Recent echocardiogram with estimated pulmonary artery pressures 55 mmHg in the setting of active chest pain and evidence of diastolic dysfunction. Would repeat echocardiogram in 3 months to reassess pulmonary pressures. 2D echocardiogram
July 2023 prior to surgery with pulmonary pressures also elevated estimated 47-49% in the setting of severe MR. Right heart catheterization August 2023 with PA pressures 74/35 with a mean of 52 and a wedge pressure of 38 with large V waves.
-Maintains regular outpatient follow-up with Dr. Eddy
History of anemia with stable hemoglobin 12.5 g/dL
Prediabetic with hemoglobin A1c 5.8% similar to June 2020
-Importance of glycemic control stressed
-If renal function remains stable we will start metformin 48 hours following catheterization
Progress Note - Offset Pressman
Subjective
Date of Service: March 15, 2024
Pt seen and examined. No complaints. No chest pain or shortness of breath.
Objective
Labs:
03/15/24 05:09
03/15/24 05:09
Labs
Hgb 12.5 g/dL (12.0-16.0) 03/15/24 05:09
Hct 38.6 % (37.0-47.0) 03/15/24 05:09
Plt Count 304 10^3/uL (130-400) 03/15/24 05:09
APTT Cancelled 03/12/24 21:44
Sodium 136 mmol/L (135-145) 03/15/24 05:09
Potassium 4.8 mmol/L (3.5-5.1) 03/15/24 05:09
BUN 15 mg/dl (7-17) 03/15/24 05:09
Creatinine 0.7 mg/dL (0.6-1.0) 03/15/24 05:09
Glucose 104 mg/dl (70-99) H 03/15/24 05:09
Troponins
03/12/24 03/12/24 03/12/24
12:15 14:32 20:42
Troponin I 0.021 0.692 H* D 3.090 H* D
03/13/24 03/13/24
04:27 12:30
Troponin I 2.800 H* Cancelled
Vital Signs and I&O:
Vital Signs
Temp Pulse Resp BP Pulse Ox
98 F 65 16 117/73 97
03/15/24 07:13 03/15/24 08:13 03/15/24 08:13 03/15/24 05:02 03/15/24 08:13
Vital Signs
Temp Pulse Resp BP Pulse Ox
98 F 65 16 117/73 97
03/15/24 07:13 03/15/24 08:13 03/15/24 08:13 03/15/24 05:02 03/15/24 08:13
Intake & Output
03/13/24 03/14/24 03/15/24 03/16/24
06:59 06:59 06:59 06:59
Intake Total 250 / 250 1440 / 1440
Output Total 525 / 525
Balance 250 / 250 915 / 915
Physical Exam
Physical Exam
General: No acute distress, AAOX3
Neck: Negative JVD
Heart: Regular, Negative S3 positive S1/S2, Negative S4, No murmur
Lungs: CTA b/l, negative wheezes/rales/rhonchi
Abd: Positive BS, NT/ND, neg rebound/rigidity/guarding
Ext: Negative cyanosis/clubbing/edema
Neuro: nonfocal
[2024-03-15] MEDS: ZESTRIL 2.5 MG PO (11:35)
[2024-03-15] MEDS: LASIX 20 MG PO (11:36)
[2024-03-15] MEDS: ZITHROMAX 250 MG PO (11:36)
[2024-03-15] MEDS: VITAMIN D3 (cholecalciferol) 50 MCG PO (11:36)
[2024-03-15] MEDS: PROTONIX 40 MG PO (11:36)
[2024-03-15] MEDS: PROZAC 40 MG PO (11:36)
[2024-03-15] MEDS: TOPROL XL 12.5 MG PO (11:36)
--- NOTE | 2024-03-15 12:42 | CM ---
Chart reviewed. Patient is independent of ADLS, lives with her daugter, son in law, their family and her son in a 2 STH, 2 CRIS, 0 DME. Patient currently with no discharge needs. Plan is for the patient to return home. CM to follow
--- NOTE | 2024-03-15 12:43 | CM ---
Pricing on Eliquis 5mg BID through the patient's [facility], is $25 a month. The patient qualifies for the $10 copay card. I will place this in the patient's red discharge folder.
[2024-03-15] MEDS: LIPITOR 40 MG PO (20:07)
[2024-03-15] MEDS: ATIVAN 0.25 MG PO (20:07)
--- NOTE | 2024-03-15 21:14 | PTCARENOTE ---
Pt rec'd at change of shift awake,alert flat affect. No c/o pain other than little 'soreness' at left thumb (cyst removal pre hospital). Sinus on telemetry. Pt with some crackles noted in bases. Pt denies cough. right radial iste antonino with good
pulse,no hematoma noted.
[2024-03-16] VITALS (9 sets, daily range): BP systolic 89–111; BP diastolic 48–61
[2024-03-16] MEDS: SPIRIVA RESPIMAT 2.5 MCG 2 PUFF INH (08:08)
[2024-03-16] MEDS: STRIVERDI RESPIMAT 2 PUFF INH (08:08)
[2024-03-16] MEDS: VENTOLIN NEBULES 2.5 MG INH (08:08)
[2024-03-16] MEDS: PULMICORT 0.5 MG INH (08:08)
[2024-03-16] MEDS: LASIX 20 MG PO (08:35)
[2024-03-16] MEDS: ZITHROMAX 250 MG PO (08:35)
[2024-03-16] MEDS: LOW STRENGTH ASPIRIN 81 MG PO (08:35)
[2024-03-16] MEDS: ELIQUIS 5 MG PO ×2 (08:35→19:46)
[2024-03-16] MEDS: PROTONIX 40 MG PO (08:35)
[2024-03-16] MEDS: VITAMIN D3 (cholecalciferol) 50 MCG PO (08:35)
[2024-03-16] MEDS: ZESTRIL 2.5 MG PO (08:35)
[2024-03-16] MEDS: PROZAC 40 MG PO (08:35)
[2024-03-16] MEDS: TOPROL XL 12.5 MG PO (08:36)
--- NOTE | 2024-03-16 11:35 | CM ---
Chart reviewed. Patient is independent of ADLS, lives with her daughter and family, and son in a 2 STH, 2 CRIS, 0 DME. Patient currently with no discharge needs. Plan is for the patient to return home. CM to follow
--- NOTE | 2024-03-16 11:41 | W.PN.CARDCBS ---
Addendum entered and electronically signed by Olivia Lombardi MD 03/16/24 20:54:
I saw and examined the patient.
The Razor Sharpener's note was reviewed and I agree with the note.
Comment: Complains of intermittent chest discomfort and SOB.
Vitals reviewed. Labwork and cath/TYRA reviewed with trop peak of 3.
Exam with female appearing older than stated age, frail, cachectic, awake, alert, oriented x 3, +JVD, Lungs with bibasilar rales, RR, normal S1 and S2. no m/r/g, abd soft, NT, ND, + BS, trace LE edema
Echo with stable Mitral valve repair. LVEF seems out ot proportion for Apical LAD occlusion
Reccs:
1. Cardiomyopathy seems out of proportion to apical LAD occlusion. Concern based on new apical occlusion with recent mitral valve surgery would be for possible thrombus though not obvious on TYRA. Discussed with CT surgery and eliquis started.
2. GDMT for new cardiomyopathy, optimize as hemodynamics will allow, along with IV diuresis. Look into cost of SGLT2-i. Plan for repeat TTE in 3 mos to reassess LVEF on GDMT.
3. Close monitoring of renal fxn, ins and outs, daily weights and lytes.
4. Monitor for afib.
Olivia Lombardi MD
Original Note:
Today's Communication / Plan
-
IV lasix
GDMT of new CM - assess cost of jardiance
eliquis started
OP manager cardiac upon DC
Impression / Plan
-
File Clerk: Dr. Kinney
Impression:
-ACS, NSTEMI with chest pain and abnormal cardiac troponin
-s/p cath 03/12/24 with apical occlusion of LAD
-NICM, EF newly 25-30%
-Acute HFrEF
-S/P Mitral valve replacement (29 mm MITRIS RESILIA valve)/(Placement of CV 3 [place]-Fredi to support the posterior medial papillary muscle head), by Dr. Christianson 09/2023
-History of postop pericarditis
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
-Severe atherosclerotic disease of thoracic aorta
-Severe pulmonary hypertension secondary to valvular disease and congestive heart failure
-History of diastolic heart failure related to valvular heart disease
-LVEF 55-60% per intraop TYRA
-Recent left thumb surgery for cyst resection
-Malnourishment/cachexia
-Severe COPD; former 50 pk/yr tobacco use quit 04/2023
-Depression/Anxiety
-COVID May 2022, s/p Paxlovid
-HTN
-HLD
-IQUGMIUT
-hx TIA with assoc. aphasia, 2019
-S/P ORIF right wrist, 2014.
-S/P Breast implants
-S/P Hysterectomy
Echo March 12 2024: EF 25% with mid anteroseptal, mid septal and mid anterior and mid lateral and mid inferior and apical akinesis, s/p chordal sparing MVR with mean grad 3 mmHg.
Plan:
-She presented with episode of chest pain and diaphoresis. Ruled in for NSTEMI with troponin which peaked at 3
-Status post cardiac catheterization 03/12 with apical occlusion of LAD, no intervention performed
-Echocardiogram with new EF 25%, had been normal pre and post mitral valve replacement. Cardiomyopathy appears out of proportion to cardiac catheterization findings
-Concern for distal LAD occlusion to be thrombotic event. She did not have postop A-fib, however concern for possible intermittent arrhythmia. in SR upon review of tele. She had been on Coumadin however this was stopped 3 months postop.
-case discussed with CT surgery. TYRA and cath films were reviewed. MVR functioning well. Started on Eliquis 5 mg p.o. twice daily. continue asa
-she will need OP manager cardiac upon DC
-She complains of continued shortness of breath and some mild chest discomfort. She has crackles on examination. Chest x-ray from admission with vascular congestion, mild interstitial edema, and very small left effusion. Check proBNP. She was
started on p.o. Lasix 20 mg daily this admission. Will give IV Lasix 20 mg now and reassess need for additional IV diuresis in a.m.
-CHF education
-Continue medical therapy of new nonischemic cardiomyopathy. She is currently on low-dose Toprol and lisinopril. Will assess cost to patient of Jardiance. consider addition of aldactone as BP tolerates
-Cardiac rehab
-Would repeat echocardiogram in 3 months after GDMT
-Moderate atherosclerotic plaque of the aortic arch extending into the origin of the brachiocephalic vessels without stenosis and plaque of the aortic root and descending aorta on CT chest August 2023. will need continued monitoring as OP
-hgbA1c 5.8%
-d/w nursing
-called and updated patient's daughter, Meaghan via telephone for 15:45.
Progress Note - File Clerk
Subjective
Date of Service: March 16, 2024
Reports some continued mild chest discomfort and shortness of breath
Objective
Labs:
03/15/24 05:09
03/15/24 05:09
Labs
Hgb 12.5 g/dL (12.0-16.0) 03/15/24 05:09
Hct 38.6 % (37.0-47.0) 03/15/24 05:09
Plt Count 304 10^3/uL (130-400) 03/15/24 05:09
APTT Cancelled 03/12/24 21:44
Sodium 136 mmol/L (135-145) 03/15/24 05:09
Potassium 4.8 mmol/L (3.5-5.1) 03/15/24 05:09
BUN 15 mg/dl (7-17) 03/15/24 05:09
Creatinine 0.7 mg/dL (0.6-1.0) 03/15/24 05:09
Glucose 104 mg/dl (70-99) H 03/15/24 05:09
Vital Signs and I&O:
Vital Signs
Temp Pulse Resp BP Pulse Ox
97.8 F 71 16 106/48 96
03/16/24 11:15 03/16/24 11:15 03/16/24 11:15 03/16/24 08:35 03/16/24 11:15
Vital Signs
Temp Pulse Resp BP Pulse Ox
97.8 F 71 16 106/48 96
03/16/24 11:15 03/16/24 11:15 03/16/24 11:15 03/16/24 08:35 03/16/24 11:15
Intake & Output
03/14/24 03/15/24 03/16/24 03/17/24
07:59 07:59 07:59 07:59
Intake Total 250 / 250 1440 / 1440 240 / 240
Output Total 525 / 525 400 / 400
Balance 250 / 250 915 / 915 -400 / -400 240 / 240
Physical Exam
Physical Exam
GEN: No distress, awake, alert, oriented x3.
HEENT: supple, anicteric, mmm, eomi
LUNGS: Crackles B/L bases, no wheezes
CV: Reg, S1/S2, no murmur
ABD: soft, BS+, NT/ND
EXT: No cyanosis, clubbing, edema
NEURO: Gross non-focal
SKIN: Warm, pink, dry. No rash. Sternotomy scar
[2024-03-16] MEDS: LASIX 20 MG IV (12:24)
[2024-03-16 12:57] LABS: NT-proBNP 4040 pg/ml
[2024-03-16 13:25] LABS: Blood Urea Nitrogen 19 mg/dl (7-17); Carbon Dioxide 23 mmol/L (22-30); Chloride 100 mmol/L (98-107); Estimated Creatinine Clearance 46 ml/min; Glucose 153 mg/dl (70-99); Potassium 4.3 mmol/L (3.5-5.1); Sodium 133 mmol/L (135-145); eGFR > 60.00
--- NOTE | 2024-03-16 16:06 | PTCARENOTE ---
AOx3, no complaints of pain. C/o chest tightness, Jeaneth Carlos PA-C, aware. VSS. Remains in NSR. Call ro within reach.
[2024-03-16] MEDS: ATIVAN 0.25 MG PO (19:46)
[2024-03-16] MEDS: LIPITOR 40 MG PO (22:03)
[2024-03-17] VITALS (10 sets, daily range): BP systolic 93–122; BP diastolic 54–74; PULSE 69; O2SAT 97; BMI 18.1
[2024-03-17 03:24] LABS: Hematocrit 37.3 % (37.0-47.0); Hemoglobin 12.4 g/dL (12.0-16.0)
--- NOTE | 2024-03-17 03:32 | PTCARENOTE ---
Tele remains SR, HR in the 60's at rest. Denies any pain. Right radial site [employer] w/ positive pulse. Ambulates self in room without difficulty. Voiding in bathroom, and staff is measuring output. CHF education provided. Call ro in reach.
[2024-03-17 03:50] LABS: Blood Urea Nitrogen 22 mg/dl (7-17); Calcium 9.4 mg/dl (8.4-10.2); Carbon Dioxide 26 mmol/L (22-30); Chloride 101 mmol/L (98-107); Estimated Creatinine Clearance 42 ml/min; Glucose 107 mg/dl (70-99); Potassium 4.4 mmol/L (3.5-5.1); Sodium 132 mmol/L (135-145); eGFR > 60.00
[2024-03-17] MEDS: SPIRIVA RESPIMAT 2.5 MCG 2 PUFF INH (07:26)
[2024-03-17] MEDS: VENTOLIN NEBULES 2.5 MG INH (07:26)
[2024-03-17] MEDS: PULMICORT 0.5 MG INH (07:27)
[2024-03-17] MEDS: STRIVERDI RESPIMAT 2 PUFF INH (07:27)
--- NOTE | 2024-03-17 07:39 | W.PN.CARDCBS ---
Addendum entered and electronically signed by Olivia Lombardi MD 03/17/24 14:32:
I saw and examined the patient.
The Stockbroking Dealer's note was reviewed and I agree with the note.
Comment: Patient still continues to be fairly short of breath with activity especially with ambulation and after working with physical therapy. No chest discomfort
Vitals reviewed. Lab work, creatinine slowly uptrending along with BUN
Exam with female appearing older than stated age, frail, cachectic, awake, alert, oriented x 3, +JVD, Lungs with fine bibasilar rales, RR, normal S1 and S2. no m/r/g, abd soft, NT, ND, + BS, trace LE edema
Echo with stable Mitral valve repair. LVEF seems out of proportion for Apical LAD occlusion.
Reccs:
1. Cardiomyopathy seems out of proportion to apical LAD occlusion. Concern based on new apical occlusion with recent mitral valve surgery would be for possible thrombus though not obvious on TYRA. Newly started on eliquis this admission.
2. Continue with IV diuresis twice daily today. Her shortness of breath does not appear to be significantly improved despite ongoing diuresis. Her proBNP was elevated and chest x-ray showed pulmonary edema. Given lack of significant improvement
despite aggressive IV diuresis with renal function uptrending, plan for repeat chest x-ray in the morning and consideration for possible pulmonary evaluation given known history of severe pulmonary hypertension. Close monitoring of renal fxn, ins
and outs, daily weights and lytes.
3. GDMT for new cardiomyopathy, optimize as hemodynamics will allow. Follow up with CM re: cost of SGLT2-i. Plan for repeat TTE in 3 mos to reassess LVEF on optimal GDMT.
4. Monitor for afib.
Olivia Lombardi MD, [facility], [facility]
Original Note:
Today's Communication / Plan
-
IV lasix 20mg x1 again today
continue asa, eliquis
needs OP monitor upon DC
continue toprol, lisinopril. assess cost to patient of jardiance
ambulate
possible DC later today vs in AM
Impression / Plan
-
Managing Jeweler: Dr. Kinney
Impression:
-ACS, NSTEMI with chest pain and abnormal cardiac troponin
-s/p cath 03/12/24 with apical occlusion of LAD
-NICM, EF newly 25-30%
-Acute HFrEF
-S/P Mitral valve replacement (29 mm MITRIS RESILIA valve)/(Placement of CV 3 [place]-Fredi to support the posterior medial papillary muscle head), by Dr. Christianson 09/2023
-History of postop pericarditis
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
-Severe atherosclerotic disease of thoracic aorta
-Severe pulmonary hypertension secondary to valvular disease and congestive heart failure
-History of diastolic heart failure related to valvular heart disease
-LVEF 55-60% per intraop TYRA
-Recent left thumb surgery for cyst resection
-Malnourishment/cachexia
-Severe COPD; former 50 pk/yr tobacco use quit 04/2023
-Depression/Anxiety
-COVID May 2022, s/p Paxlovid
-HTN
-HLD
-C[place]
-hx TIA with assoc. aphasia, 2019
-S/P ORIF right wrist, 2014
-S/P Breast implants
-S/P Hysterectomy
Echo March 12 2024: EF 25% with mid anteroseptal, mid septal and mid anterior and mid lateral and mid inferior and apical akinesis, s/p chordal sparing MVR with mean grad 3 mmHg.
Plan:
-She presented with episode of chest pain and diaphoresis. Ruled in for NSTEMI with troponin which peaked at 3
-Status post cardiac catheterization 03/12 with apical occlusion of LAD, no intervention performed
-Echocardiogram with new EF 25%, had been normal pre and post mitral valve replacement. Cardiomyopathy appears out of proportion to cardiac catheterization findings
-Concern for distal LAD occlusion to be thrombotic event. She did not have postop A-fib, however concern for possible intermittent arrhythmia. in SR upon review of tele overnight, no arrhythmias noted. She had been on Coumadin however this was
stopped 3 months postop.
-case discussed with CT surgery. TYRA and cath films were reviewed. MVR functioning well. Eliquis 5 mg p.o. twice daily started this admission. continue asa
-she will need OP cafeteria monitor upon DC
-she was in acute CHF yesterday and given IV lasix 20mg x1. she reports chest discomfort improved. will plan to give additional IV lasix dose 20mg today
-CHF education
-Continue medical therapy of new nonischemic cardiomyopathy. She is currently on low-dose Toprol and lisinopril. Will assess cost to patient of Jardiance. consider addition of aldactone as BP tolerates
-Cardiac rehab
-Would repeat echocardiogram in 3 months after GDMT
-Moderate atherosclerotic plaque of the aortic arch extending into the origin of the brachiocephalic vessels without stenosis and plaque of the aortic root and descending aorta on CT chest August 2023. will need continued monitoring as OP
-hgbA1c 5.8%
Progress Note - Managing Jeweler
Subjective
Date of Service: March 17, 2024
Patient reports improvement in chest discomfort. She reports some degree of continued shortness of breath.
Objective
Labs:
03/17/24 03:18
03/17/24 03:18
Labs
Hgb 12.4 g/dL (12.0-16.0) 03/17/24 03:18
Hct 37.3 % (37.0-47.0) 03/17/24 03:18
Plt Count 304 10^3/uL (130-400) 03/15/24 05:09
APTT Cancelled 03/12/24 21:44
Sodium 132 mmol/L (135-145) L 03/17/24 03:18
Potassium 4.4 mmol/L (3.5-5.1) 03/17/24 03:18
BUN 22 mg/dl (7-17) H 03/17/24 03:18
Creatinine 1.0 mg/dL (0.6-1.0) 03/17/24 03:18
Glucose 107 mg/dl (70-99) H 03/17/24 03:18
Vital Signs and I&O:
Vital Signs
Temp Pulse Resp BP Pulse Ox
97.6 F 68 15 100/54 95
03/17/24 07:10 03/17/24 07:34 03/17/24 07:34 03/17/24 03:13 03/17/24 07:34
Vital Signs
Temp Pulse Resp BP Pulse Ox
97.6 F 68 15 100/54 95
03/17/24 07:10 03/17/24 07:34 03/17/24 07:34 03/17/24 03:13 03/17/24 07:34
Intake & Output
03/14/24 03/15/24 03/16/24 03/17/24
07:59 07:59 07:59 07:59
Intake Total 250 / 250 1440 / 1440 480 / 480
Output Total 525 / 525 400 / 400 200 / 200
Balance 250 / 250 915 / 915 -400 / -400 280 / 280
Physical Exam
Physical Exam
GEN: No distress, awake, alert, oriented x3. receiving breathing treatment
HEENT: supple, anicteric, mmm, eomi
LUNGS: Few crackles B/L bases, no wheezes
CV: Reg, S1/S2, no murmur
ABD: soft, BS+, NT/ND
EXT: No cyanosis, clubbing, edema
NEURO: Gross non-focal
SKIN: Warm, pink, dry. No rash. Sternotomy scar
[2024-03-17] MEDS: LASIX 20 MG IV ×2 (09:00→15:02)
[2024-03-17] MEDS: PROZAC 40 MG PO (09:01)
[2024-03-17] MEDS: PROTONIX 40 MG PO (09:01)
[2024-03-17] MEDS: TOPROL XL 12.5 MG PO (09:01)
[2024-03-17] MEDS: VITAMIN D3 (cholecalciferol) 50 MCG PO (09:01)
[2024-03-17] MEDS: ZITHROMAX 250 MG PO (09:01)
[2024-03-17] MEDS: LOW STRENGTH ASPIRIN 81 MG PO (09:02)
[2024-03-17] MEDS: ELIQUIS 5 MG PO ×2 (09:02→19:58)
[2024-03-17] MEDS: ZESTRIL 2.5 MG PO (09:02)
--- NOTE | 2024-03-17 10:05 | CM ---
Pricing on Jardiance through the patient's [facility] is $25 a month. The patient qualifies for the $10 co pay card. I will place it in her red discharge folder.
--- NOTE | 2024-03-17 11:51 | CM ---
Chart reviewed. Patient is independent of ADLS, live with her daughter and her family in a 2 STH, 2 CRIS, 0 DME. Plan is for the patient to return home. CM to follow
--- NOTE | 2024-03-17 14:27 | W.PN.UPDATE ---
Update Note
Progress Note Update
Went back to see patient to reassess clinical status. She was noted to complain of shortness of breath with exertion while working with physical therapy. O2 sat and blood pressure remained stable during this. Unclear if shortness of breath is all
cardiac related. She also has known lung disease. She is unable to really tell me if this is her baseline shortness of breath or not. Will give additional dose of IV Lasix 20 mg this afternoon. Will plan for repeat chest x-ray in a.m. If she is
not feeling symptomatically improved, would consider pulmonology evaluation.
called and updated daughter Katlin via telephone for 11: 40
d/w nursing
--- NOTE | 2024-03-17 15:08 | PTCARENOTE ---
Pt presents as assessed. Aox3, flat. NSR on tele monitor. Sating mid to high 90's on RA. Reports feeling SOB with activity- cardiology aware and orders placed by provider. Requesting evaluation of site of recently removed cyst on L thumb- WOC c/s
placed. Pt ringing appropriately, call ro within reach.
[2024-03-17 16:41] LABS: Glucose - Point of Care 141 mg/dl (70-99)
--- NOTE | 2024-03-17 16:50 | PTCARENOTE ---
Pt rang call ro after using the bathroom, nearly passed out upon standing. Reports feeling dizziness and feeling like she would pass out with nausea and difficulty breathing. VSS, accheck obtained with result of 141 and EKG done. Placed on 2L NC
for comfort. Jeaneth Carlos notified via TT, at bedside to evaluate pt. Reports feeling somewhat improved.
--- NOTE | 2024-03-17 17:00 | W.PN.UPDATE ---
Update Note
Progress Note Update
Called to see patient by nursing as was noted to feel dizzy and lightheaded upon getting up and walking into the bathroom to wash her face. Presyncope noted, however did not actually pass out. She felt short of breath with this in addition. She
was returned to bed with fairly quick improvement. Her pulse ox, vital signs, blood sugar, EKG all stable. Possible orthostasis in setting of diuresis, indicating patient likely dry. Will repeat BMP in AM. Encouraged oral hydration. Check
orthostatic vital signs later today. Check ambulatory pulse ox if not ready completed with PT. As she remains with shortness of breath with exertion, which appears out of proportion to cardiac issues, will plan for pulmonary consult in AM. She
does have history of known lung disease, however states at home she does not normally feel dyspneic with exertion. Will repeat chest x-ray in a.m. as well as previously planned. Discussed with nursing
[2024-03-17] MEDS: LIPITOR 40 MG PO (20:02)
[2024-03-17] MEDS: ATIVAN 0.25 MG PO (20:03)
--- NOTE | 2024-03-17 21:54 | PTCARENOTE ---
Pt rec'd at change of shift in bed without complaint. Pt wearing O2 at 2 lit n/c. Pt states not sure she notices a difference with O2 in place. denies feeling sob. crackles noted bibasilar.Pt reminded to call staff for assist to bathroom. call ro
within reach. Left thumb botany professor cleansed with saline sutures present. no bleeding or redness at site. redressed with bacitracin and band aid per pt's instructions from outpt doctor. Pt reports sutures are due to come out at end of month.
[2024-03-18] VITALS (15 sets, daily range): BP systolic 75–118; BP diastolic 40–71; PULSE 70–91; BMI 18.3
[2024-03-18 05:31] LABS: Blood Urea Nitrogen 29 mg/dl (7-17); Carbon Dioxide 27 mmol/L (22-30); Chloride 99 mmol/L (98-107); Estimated Creatinine Clearance 40 ml/min; Glucose 116 mg/dl (70-99); Potassium 4.3 mmol/L (3.5-5.1); Sodium 133 mmol/L (135-145); eGFR > 60.00
[2024-03-18] MEDS: NSS 250 IV (07:35)
--- NOTE | 2024-03-18 07:38 | W.PN.CARDCBS ---
Addendum entered and electronically signed by Aimee Mock DO 03/18/24 12:42:
I saw and examined the patient.
The Associate Theatre Professor's note was reviewed and I agree with the note.
Comment: Seen and examined. Overall patient looking better but still reporting shortness of breath. No further chest pain. No lower extremity edema. Lightheaded this morning with lower blood pressure that responded well to IV fluid bolus.
Currently asymptomatic in bed.
GEN: NAD, frail.
HEENT: mmm
LUNGS: Bronchovesicular breath sounds with no wheezes. No crackles. Overall decreased
CV: Reg, S1/S2, no murmur
ABD: soft, BS+, NT/ND
EXT: No edema
NEURO: Gross non-focal
Plan:
Non-STEMI/ACS with apical occlusion of LAD which previously wrapped around inferior wall
-s/p cath 03/12/24 with apical occlusion of LAD No stent placed
-Currently chest pain-free
-Peak troponin 3.090 on 03/12 at 20:42
-Plan reviewed with interventional cardiology: Concern for thrombotic event. IV heparin transition to Eliquis and aspirin 03/13/24.
-Continue low-dose beta-ruslan.
-Continue statin with goal LDL less than 70 mg/dL: Lipid profile 03/13/2024: Total cholesterol 105, triglycerides 70, HDL 65, LDL 26.
-Plan for TYRA on Thursday 03/15 with intracardiac source of thrombus. Mitral valve replacement with chordal sparing appears good with no mitral regurgitation.
-Monitor telemetry: No arrhythmias
-Will consider outpatient cardiac monitoring
-Cardiac rehab consulted
New ischemic cardiomyopathy with new reduction in ejection fraction, EF estimated 25% with the entire apical cap akinetic
-Improved volume status following gentle diuresis now hypotensive/volume contracted and responded to normal saline bolus
-Will hold oral Lasix and low-dose lisinopril
-Continue low-dose Toprol succinate
-Would repeat echocardiogram in 3 months
-CHF diet. CHF education.
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
-Mitral valve replacement functioning well with mean gradient 3 mmHg and no significant mitral regurgitation
Moderate atherosclerotic plaque of the aortic arch extending into the origin of the brachiocephalic vessels without stenosis and plaque of the aortic root and descending aorta on CT chest August 2023
-Continue medical therapy
History of severe COPD/emphysema with prior tobacco dependence/pulmonary hypertension with ongoing dyspnea
-Pulmonary consulted
-Repeat CXR
-Quit smoking in April 2023
-Recent echocardiogram with estimated pulmonary artery pressures 55 mmHg in the setting of active chest pain and evidence of diastolic dysfunction. Would repeat echocardiogram in 3 months to reassess pulmonary pressures. 2D echocardiogram
July 2023 prior to surgery with pulmonary pressures also elevated estimated 47-49% in the setting of severe MR. Right heart catheterization August 2023 with PA pressures 74/35 with a mean of 52 and a wedge pressure of 38 with large V waves.
-Maintains regular outpatient follow-up with Dr. Eddy
History of anemia with stable hemoglobin 12.5 g/dL
Prediabetic with hemoglobin A1c 5.8% similar to June 2020
-Importance of glycemic control stressed
D/C planning
Original Note:
Today's Communication / Plan
-
NSS bolus. follow BPs
repeat CXR and pulm consult as continues with SOB
check ortho VS and ambulatory pulse ox
Impression / Plan
-
Mining Captain: Dr. Kinney
Impression:
-ACS, NSTEMI with chest pain and abnormal cardiac troponin
-s/p cath 03/12/24 with apical occlusion of LAD
-NICM, EF newly 25-30%
-Acute HFrEF
-S/P Mitral valve replacement (29 mm MITRIS RESILIA valve)/(Placement of CV 3 [place] to support the posterior medial papillary muscle head), by Dr. Christianson 09/2023
-History of postop pericarditis
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
-Severe atherosclerotic disease of thoracic aorta
-Severe pulmonary hypertension secondary to valvular disease and congestive heart failure
-History of diastolic heart failure related to valvular heart disease
-LVEF 55-60% per intraop TYRA
-Recent left thumb surgery for cyst resection
-Malnourishment/cachexia
-Severe COPD; former 50 pk/yr tobacco use quit 04/2023, started on chronic zithromax therapy 12/2023
-Depression/Anxiety
-COVID May 2022, s/p Paxlovid
-HTN
-HLD
-[place]
-hx TIA with assoc. aphasia, 2019
-S/P ORIF right wrist, 2014
-S/P Breast implants
-S/P Hysterectomy
Echo March 12 2024: EF 25% with mid anteroseptal, mid septal and mid anterior and mid lateral and mid inferior and apical akinesis, s/p chordal sparing MVR with mean grad 3 mmHg.
Plan:
-She presented with episode of chest pain and diaphoresis. Ruled in for NSTEMI with troponin which peaked at 3. Status post cardiac catheterization 03/12 with apical occlusion of LAD, no intervention performed
-Echocardiogram with new EF 25%, had been normal pre and post mitral valve replacement. Cardiomyopathy appears out of proportion to cardiac catheterization findings
-Concern for distal LAD occlusion to be thrombotic event. She did not have postop A-fib, however concern for possible intermittent arrhythmia. no arrhythmia noted since her arrival by tele. She had been on Coumadin however this was stopped 3
months postop.
-TYRA and cath films were reviewed and discussed with CT surgery this admission. MVR functioning well.
-Eliquis 5 mg p.o. twice daily started this admission. continue asa. consider OP director of cardiac rehabilitation upon DC, however at this point she has been monitored for close to a week inpatient
-she continues to complain of SOB. does not appear to be cardiac as she has been diuresed and this morning with hypotension with SBP as low as 70s at one point and lightheadedness suggestive of being dry. will give 250cc NSS bolus and reassess BPs.
holding BB and acei for now
-repeat CXR and pulm consult today. check ortho VS and ambulatory pulse ox
-of note, she was started on chronic zithromax therapy 12/2023 by pulmonary for anti-inflammatory properties in setting of severe COPD.
-CHF education
-Continue medical therapy of new nonischemic cardiomyopathy. No aldactone for now given hypotension. holding off on addition of jardiance for now, however does appear affordable
-Cardiac rehab
-Would repeat echocardiogram in 3 months after GDMT
-Moderate atherosclerotic plaque of the aortic arch extending into the origin of the brachiocephalic vessels without stenosis and plaque of the aortic root and descending aorta on CT chest August 2023. will need continued monitoring as OP
-hgbA1c 5.8%
-d/w nursing
Progress Note - Mining Captain
Subjective
Date of Service: March 18, 2024
reports lightheadedness
Objective
Labs:
03/17/24 03:18
03/18/24 04:56
Labs
Hgb 12.4 g/dL (12.0-16.0) 03/17/24 03:18
Hct 37.3 % (37.0-47.0) 03/17/24 03:18
Plt Count 304 10^3/uL (130-400) 03/15/24 05:09
APTT Cancelled 03/12/24 21:44
Sodium 133 mmol/L (135-145) L 03/18/24 04:56
Potassium 4.3 mmol/L (3.5-5.1) 03/18/24 04:56
BUN 29 mg/dl (7-17) H 03/18/24 04:56
Creatinine 1.0 mg/dL (0.6-1.0) 03/18/24 04:56
Glucose 116 mg/dl (70-99) H 03/18/24 04:56
Vital Signs and I&O:
Vital Signs
Temp Pulse Resp BP Pulse Ox
97.5 F 64 20 107/67 98
03/18/24 07:19 03/18/24 04:49 03/18/24 07:19 03/18/24 04:49 03/18/24 07:19
Vital Signs
Temp Pulse Resp BP Pulse Ox
97.5 F 64 20 107/67 98
03/18/24 07:19 03/18/24 04:49 03/18/24 07:19 03/18/24 04:49 03/18/24 07:19
Intake & Output
03/15/24 03/16/24 03/17/24 03/18/24
07:59 07:59 07:59 07:59
Intake Total 1440 / 1440 480 / 480
Output Total 525 / 525 400 / 400 200 / 200 600 / 600
Balance 915 / 915 -400 / -400 280 / 280 -600 / -600
Physical Exam
Physical Exam
GEN: No distress, awake, alert, oriented x3.
HEENT: supple, anicteric, mmm, eomi
LUNGS: Few crackles B/L bases, no wheezes
CV: Reg, S1/S2, no murmur
ABD: soft, BS+, NT/ND
EXT: No cyanosis, clubbing, edema
NEURO: Gross non-focal
SKIN: Warm, pink, dry. No rash. Sternotomy scar
[2024-03-18] MEDS: STRIVERDI RESPIMAT 2 PUFF INH (08:25)
[2024-03-18] MEDS: VENTOLIN NEBULES 2.5 MG INH (08:25)
[2024-03-18] MEDS: PULMICORT 0.5 MG INH (08:25)
[2024-03-18] MEDS: SPIRIVA RESPIMAT 2.5 MCG 2 PUFF INH (08:25)
[2024-03-18] MEDS: PROZAC 40 MG PO (09:17)
[2024-03-18] MEDS: ZITHROMAX 250 MG PO (09:18)
[2024-03-18] MEDS: LOW STRENGTH ASPIRIN 81 MG PO (09:18)
[2024-03-18] MEDS: PROTONIX 40 MG PO (09:18)
[2024-03-18] MEDS: ELIQUIS 5 MG PO ×2 (09:18→19:34)
[2024-03-18] MEDS: VITAMIN D3 (cholecalciferol) 50 MCG PO (09:18)
--- NOTE | 2024-03-18 11:27 | CM ---
Chart reviewed. Patient is independent of ADLS, lives with her daughter and family and son in a 2 STH, 2 CRIS, 0 DME. Patient currently with no discharge needs. Plan is for the patient to return home. CM to follow
--- NOTE | 2024-03-18 12:18 | CON.PUL ---
Consultation
Consultation Request
Date/Time Consultation Requested: 03/18/2024
Date/Time Consultation Performed: 03/18/2024
Requesting Provider: Dr. Mock
Performing Provider: Dr. Curry Skinner
Reason for Consultation: Shortness of breath/COPD
Medical History
-
History of Present Illness:
68-year-old woman with past medical history of mitral valve replacement September 2023, history of postop pericarditis, severe pulmonary hypertension due to cardiac disease initially with preserved ejection fraction.
Admitted to the hospital with shortness of breath. She was found to have a non-ST elevation myocardial infarction. Catheterization 03/12/2024 showed apical occlusion of LAD. She was discovered to have new onset cardiomyopathy with ejection
fraction 25 to 30%. Possible apical ballooning.
Continues to be persistently short of breath despite diuresis and cardiac management. We were consulted for evaluation. Patient does have history of severe COPD, she is a former smoker who quit in April 2023. Follows up with Dr. Eddy in the
outpatient setting.
Last time seen in our office 12/31/2023. In the interim she was placed on low-dose azithromycin for anti-inflammatory properties given ongoing symptoms.
She has been on nebulized therapy with budesonide and albuterol, also using ANORO.
Last 6-minute walk testing on 12/31/2023 low saturation was 90%. No oxygen requirements.
Past Medical History
Past Medical History: Other (See assessment and plan section)
Social History
Tobacco: Former Smoker ([id number] history quit in April 2023)
Alcohol: None
Drug: None
Family History
Family History: Reviewed & Not Pertinent
Allergies / Home Medications
Allergies
Allergy/AdvReac Type Severity Reaction Status Date / Time
iodine [Iodine] Allergy Rash Verified 03/12/24 12:04
metronidazole [From Flagyl] Allergy Rash Verified 03/12/24 12:04
Metronidazole HCl Allergy Rash Verified 03/12/24 12:04
[From Flagyl]
oxycodone HCl [From Percocet] Allergy Vomitting Verified 03/12/24 12:04
and
hallucinations
Home Medications
�Medication �Instructions �Recorded �Confirmed �Last Taken �Type
lorazepam 0.5 mg tablet 0.25 mg PO HS Mental Health/Anxiety 11/20/18 03/12/24 03/12/24 History
umeclidinium 62.5 mcg-vilanterol 1 inh inhalation DAILY copd 03/20/23 03/12/24 03/12/24 History
25 mcg/actuation powdr for
inhalation (Anoro Ellipta)
albuterol sulfate 2.5 mg/3 mL 2.5 mg inhalation DAILY 08/27/23 03/12/24 03/12/24 History
(0.083 %) solution for nebulization Lung/Breathing Issues
budesonide 0.5 mg/2 mL suspension 0.5 mg inhalation DAILY 08/27/23 03/12/24 03/12/24 History
for nebulization Lung/Breathing Issues
cholecalciferol (vitamin D3) 50 50 mcg PO DAILY Supplement 08/27/23 03/12/24 03/12/24 History
mcg (2,000 unit) capsule (Vitamin
D3)
ibandronate 150 mg tablet 150 mg PO Q30D bone health 08/27/23 03/12/24 03/09/24 History
acetaminophen 500 mg tablet 1,000 mg PO Q6H PRN PAIN 09/03/23 03/12/24 03/12/24 History
atorvastatin 40 mg tablet 40 mg PO HS High Cholesterol 09/03/23 03/12/24 03/12/24 History
fluoxetine 40 mg capsule 40 mg PO DAILY Mental 09/03/23 03/12/24 03/12/24 History
Health/Anxiety
aspirin 81 mg tablet,delayed 81 mg PO DAILY Blood Clot 09/24/23 03/12/24 03/12/24 History
release (Adult Aspirin Regimen) Prevention/Tx
metoprolol succinate 25 mg 12.5 mg (1/2 x 25 mg) PO DAILY 09/27/23 03/12/2403/12/24 Rx
tablet,extended release 24 hr Blood pressure #90 tabs
albuterol sulfate 90 mcg/actuation 2 puff inhalation R Q4HPRN PRN 03/12/24 03/12/24 03/12/24 History
aerosol inhaler shortness of breath
azithromycin 250 mg tablet 250 mg PO DAILY Infection 03/12/24 03/12/24 03/12/24 History
lorazepam 0.5 mg tablet 0.25 mg PO HS PRN insonmia or 03/12/24 03/12/24 03/12/24 History
anxiety
Review of Systems
-
History Source: Patient
All other systems: Negative unless noted
Vitals / Labs / Diagnostic Testing
Vital Signs
Temp Pulse Resp BP Pulse Ox
98.1 F 72 16 118/71 97
03/18/24 11:27 03/18/24 11:26 03/18/24 11:27 03/18/24 11:26 03/18/24 11:44
Lab Data
03/17/24 03:18
03/18/24 04:56
Diagnostic Testing:
Physical Exam
-
HEENT: Normocephalic
Cardiovascular: S1/S2
Respiratory: Clear
GI: Soft and Non Distended
Neurology: Awake, Alert and Oriented
Skin: Warm
General: Respiratory Distress (n)
Assessment
-
Exertional dyspnea: Likely multifactorial.
Newly diagnosed cardiomyopathy ejection fraction 25%.
Advanced COPD
Muscle wasting/deconditioning.
Conditions present prior admission:
Severe pulmonary hypertension due to cardiac disease
History of rheumatic severe mitral valve stenosis and insufficiency-status post mitral valve replacement 09/2023.
Complicated by postoperative pericarditis
Cachexia/malnutrition
Depression/anxiety
History of COVID in May 2022
Hypertension
Hypercholesterolemia
History of TIA 2019
Bilateral breast implants
Hysterectomy
Assessment and plan:
Suspect ongoing shortness of breath is multifactorial:
Most recent pulmonary function testing 01/16/2024: Showed.
Moderate/severe obstructive lung disease with FEV1 of 46% of predicted. FEV1/FVC ratio 41%. Air trapping and hyperinflation hide improved compared to prior. Severely decreased diffusion capacity under 20%.
-
chest x-ray 03/18/2024: Showed hyperinflation without infiltrates.
CT chest 01/09/2023: Reviewed showed upper lobe predominant emphysema. Hyperinflation.
Currently not requiring supplemental oxygen.
-
She does not appear to be an acute exacerbation.
Suspect symptoms are multifactorial including new onset heart failure on top of her underlying lung disease.
Currently on maximal medical therapy.
Anoro
Pulmicort/albuterol nebulizers as needed
Low-dose azithromycin for anti-inflammatory properties
She will benefit from pulmonary habilitation after cleared from the cardiac perspective.
-
Reviewed [facility] records, recently was given a steroid taper without significant improvement. Hold off on further steroids at this point.
-
Will need short-term follow-up in our office.
--- NOTE | 2024-03-18 14:00 | WOUNDNOTE ---
[facility] RN note: Patient admitted with CP, NSTEMI, CHF. s/p cardiac cath 03/12/24, TYRA. Patient lives with family.
See H&P for complete history.
PMH: mitral valve repair 09/2023 Dr. Christianson, post
Wound Location and type/assessment: Patient admitted with:
Appetite:
Pressure redistribution devices in place:
Plan:
Will confirm orders with hospitalist and update nurse.
Updated care plan and will follow as needed.
Note to case management of equipment requested for discharge:
Recommend follow up at wound care center upon discharge.
--- NOTE | 2024-03-18 14:14 | WOUNDNOTE ---
[facility] RN note: Patient admitted with CP, NSTEMI, CHF. s/p cardiac cath 03/12/24, TYRA. Patient lives with family.
See H&P for complete history.
PMH: mitral valve repair 09/2023 Dr. Christianson, post op pericarditis, severe atherosclerotic disease of thoracic aorta, severe pulmonary HTN, recent L thumb surgery (removal of cyst), cachexia, former smoker (quit 04/2023), PAUMA, ORIF R wrist, s/p breast
implants, s/p hysterectomy.
Wound Location and type/assessment: Patient admitted with: L thumb incision with sutures, small serous drainage, incision approximated and appears macerated. Patient said Dr. Schmidt did the surgery last Friday and she is due to see him with suture
removal on 03/23/24. Patient stated local care is clean with antibacterial soap and water, Bacitracin ointment (she has with her) and Bandaid twice a day. Patient and nursing have been doing dressing changes.
Appetite: 100% intact has been documented.
Pressure redistribution devices in place: [employer] Accumax. Patient is mobile.
Plan: L thumb dressing changed.
Will confirm orders with cardiology service and updated KARLA Rosas.
Care plan to be updated. Patient to follow up with Dr. Schmidt. Will sign off.
--- NOTE | 2024-03-18 18:39 | PTCARENOTE ---
Pt symptomatic with low BP 75/59 while resting in bed. Pt seen by Jeaneth Carlos NP and was given 250ML IV bolus over one hour with good effect. Orthostatic vital signs checked. Pt instructed to wait between changing positions when at home. Pt is a
fall risk, precautions in place. Telemetry shows sinus rhythm.
[2024-03-18] MEDS: BACITRACIN OINTMENT 1 APPLIC TOPICAL (19:38)
[2024-03-18] MEDS: LIPITOR 40 MG PO (19:38)
[2024-03-18] MEDS: ATIVAN 0.25 MG PO (19:38)
--- NOTE | 2024-03-18 23:56 | PTCARENOTE ---
Pt rec'd at change of shift awake,alert asked for assistance to bathroom. gait steady. Pt denies feeling dizzy even made a joke and laughed about swaying. No sob noted with activity. Pt does not appear sob with activity. Sinus on telemetry
[2024-03-19] VITALS (8 sets, daily range): BP systolic 95–120; BP diastolic 42–67; PULSE 72–78; BMI 18.1
--- NOTE | 2024-03-19 04:28 | PTCARENOTE ---
Pt oob with nursing to void. Gait cautious but steady. Sinus on telemetry
[2024-03-19 04:54] LABS: Blood Urea Nitrogen 19 mg/dl (7-17); Carbon Dioxide 27 mmol/L (22-30); Chloride 103 mmol/L (98-107); Estimated Creatinine Clearance 50 ml/min; Glucose 106 mg/dl (70-99); Potassium 4.5 mmol/L (3.5-5.1); Sodium 135 mmol/L (135-145); eGFR > 60.00
[2024-03-19] MEDS: STRIVERDI RESPIMAT 2 PUFF INH (07:30)
[2024-03-19] MEDS: VENTOLIN NEBULES 2.5 MG INH (07:31)
[2024-03-19] MEDS: SPIRIVA RESPIMAT 2.5 MCG 2 PUFF INH (07:31)
[2024-03-19] MEDS: PULMICORT 0.5 MG INH (07:31)
[2024-03-19] MEDS: LOW STRENGTH ASPIRIN 81 MG PO (08:45)
[2024-03-19] MEDS: PROZAC 40 MG PO (08:45)
[2024-03-19] MEDS: PROTONIX 40 MG PO (08:46)
[2024-03-19] MEDS: ZITHROMAX 250 MG PO (08:46)
[2024-03-19] MEDS: ZESTRIL 2.5 MG PO (08:46)
[2024-03-19] MEDS: ELIQUIS 5 MG PO (08:46)
[2024-03-19] MEDS: VITAMIN D3 (cholecalciferol) 50 MCG PO (08:46)
--- NOTE | 2024-03-19 08:50 | W.PN.CARDCBS ---
Addendum entered and electronically signed by Jeaneth Carlos PA-C 03/19/24 12:58:
called and updated patient's daughter Meaghan via telephone for 7:45.
Addendum entered and electronically signed by Aimee Mock DO 03/19/24 12:34:
I saw and examined the patient.
The Synthetic Filament Extruder's note was reviewed and I agree with the note.
Comment: Seen and examined. Overall patient looking better but still reporting shortness of breath. No further chest pain. No lower extremity edema. Lightheaded this morning with lower blood pressure that responded well to IV fluid bolus.
Currently asymptomatic in bed.
GEN: NAD, frail.
HEENT: mmm
LUNGS: Bronchovesicular breath sounds with no wheezes. No crackles. Overall decreased
CV: Reg, S1/S2, no murmur
ABD: soft, BS+, NT/ND
EXT: No edema
NEURO: Gross non-focal
Plan:
Non-STEMI/ACS with apical occlusion of LAD which previously wrapped around inferior wall
-s/p cath 03/12/24 with apical occlusion of LAD No stent placed
-Currently chest pain-free
-Peak troponin 3.090 on 03/12 at 20:42
-Plan reviewed with interventional cardiology: Concern for thrombotic event. IV heparin transition to Eliquis and aspirin 03/13/24.
-Continue low-dose beta-ruslan.
-Continue statin with goal LDL less than 70 mg/dL: Lipid profile 03/13/2024: Total cholesterol 105, triglycerides 70, HDL 65, LDL 26.
-Plan for TYRA on Thursday 03/15 with intracardiac source of thrombus. Mitral valve replacement with chordal sparing appears good with no mitral regurgitation.
-Monitor telemetry: No arrhythmias
-Will consider outpatient cardiac monitoring
-Cardiac rehab consulted
New ischemic cardiomyopathy with new reduction in ejection fraction, EF estimated 25% with the entire apical cap akinetic
-Improved volume status following gentle diuresis now hypotensive/volume contracted and responded to normal saline bolus
-Will hold oral Lasix and low-dose lisinopril
-Continue low-dose Toprol succinate
-Would repeat echocardiogram in 3 months
-CHF diet. CHF education.
Status post Mitral valve replacement (29 mm MITRIS RESILIA valve)/(Placement of CV 3 [place]Fred[place] to support the posterior medial papillary muscle head) for mixed rheumatic severe mitral stenosis/insufficiency 09/23/2023
-Mitral valve replacement functioning well with mean gradient 3 mmHg and no significant mitral regurgitation
Moderate atherosclerotic plaque of the aortic arch extending into the origin of the brachiocephalic vessels without stenosis and plaque of the aortic root and descending aorta on CT chest August 2023
-Continue medical therapy
History of severe COPD/emphysema with prior tobacco dependence/pulmonary hypertension with ongoing dyspnea
-Appreciate pulmonary
-Repeat CXR 03/18/2024 with no acute cardiopulmonary process.
-Quit smoking in April 2023
-Recent echocardiogram with estimated pulmonary artery pressures 55 mmHg in the setting of active chest pain and evidence of diastolic dysfunction. Would repeat echocardiogram in 3 months to reassess pulmonary pressures. 2D echocardiogram
July 2023 prior to surgery with pulmonary pressures also elevated estimated 47-49% in the setting of severe MR. Right heart catheterization August 2023 with PA pressures 74/35 with a mean of 52 and a wedge pressure of 38 with large V waves.
-Maintains regular outpatient follow-up with Dr. Eddy
History of anemia with stable hemoglobin 12.5 g/dL
Prediabetic with hemoglobin A1c 5.8% similar to June 2020
-Importance of glycemic control stressed
Discharge home today with outpatient cardiac follow-up.
Encouraged outpatient pulmonary follow-up
Cardiac rehab highly encouraged however she has concerns about the cost
Original Note:
Today's Communication / Plan
-
reusme low dose toprol, lisinopril
lasix 20mg MWF upon DC
BMP in 1 week
asa, eliquis
cardiac rehab
for DC today
OP cardiac follow up arranged
Impression / Plan
-
Jewelry Sales Associate: Dr. Kinney
Impression:
-ACS, NSTEMI with chest pain and abnormal cardiac troponin
-s/p cath 03/12/24 with apical occlusion of LAD
-NICM, EF newly 25-30%
-Acute HFrEF
-S/P Mitral valve replacement (29 mm MITRIS RESILIA valve)/(Placement of CV 3 [place] to support the posterior medial papillary muscle head), by Dr. Christianson 09/2023
-History of postop pericarditis
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
-Severe atherosclerotic disease of thoracic aorta
-Severe pulmonary hypertension secondary to valvular disease and congestive heart failure
-History of diastolic heart failure related to valvular heart disease
-LVEF 55-60% per intraop TYRA
-Recent left thumb surgery for cyst resection
-Malnourishment/cachexia
-Severe COPD; former 50 pk/yr tobacco use quit 04/2023, started on chronic zithromax therapy 12/2023
-Depression/Anxiety
-COVID May 2022, s/p Paxlovid
-HTN
-HLD
-[place]
-hx TIA with assoc. aphasia, 2019
-S/P ORIF right wrist, 2014
-S/P Breast implants
-S/P Hysterectomy
Echo March 12 2024: EF 25% with mid anteroseptal, mid septal and mid anterior and mid lateral and mid inferior and apical akinesis, s/p chordal sparing MVR with mean grad 3 mmHg.
Plan:
-She presented with episode of chest pain and diaphoresis. Ruled in for NSTEMI with troponin which peaked at 3. Status post cardiac catheterization 03/12 with apical occlusion of LAD, no intervention performed
-Echocardiogram with new EF 25%, had been normal pre and post mitral valve replacement. Cardiomyopathy appears out of proportion to cardiac catheterization findings, ? takotsubo
-Concern for distal LAD occlusion to be thrombotic event. She did not have postop A-fib, however concern for possible intermittent arrhythmia. no arrhythmia noted since her arrival by tele. She had been on Coumadin however this was stopped 3
months postop. Eliquis 5 mg p.o. twice daily started this admission. continue asa.
-TYRA and cath films were reviewed and discussed with CT surgery this admission. MVR functioning well.
-she was diuresed with some improvement however then with hypotension and lightheadedness. meds held and given fluid bolus 03/18. no dizziness overnight. suspected dehydrated from diuresis. BPs have been stable overnight. will resume low dose
toprol/lisinopril
-appreciate pulm input. CXR 03/18 without acute abnormality. of note, she was started on chronic zithromax therapy 12/2023 by pulmonary for anti-inflammatory properties in setting of severe COPD. will need continued OP pulm follow up
-CHF education
-Continue medical therapy of new nonischemic cardiomyopathy. No aldactone for now given hypotension. holding off on addition of jardiance for now, however does appear affordable, consider addition as OP
-would consider for lasix 20mg MWF upon DC with BMP in 1 week
-Cardiac rehab
-Would repeat echocardiogram in 3 months after GDMT
-Moderate atherosclerotic plaque of the aortic arch extending into the origin of the brachiocephalic vessels without stenosis and plaque of the aortic root and descending aorta on CT chest August 2023. will need continued monitoring as OP
-hgbA1c 5.8%
-will plan for DC to home today
-OP cardiac follow up arranged
-d/w nursing
Progress Note - Jewelry Sales Associate
Subjective
Date of Service: March 19, 2024
denies CP, SOB, lightheadedness.
Objective
Labs:
03/17/24 03:18
03/19/24 04:16
Labs
Hgb 12.4 g/dL (12.0-16.0) 03/17/24 03:18
Hct 37.3 % (37.0-47.0) 03/17/24 03:18
Plt Count 304 10^3/uL (130-400) 03/15/24 05:09
APTT Cancelled 03/12/24 21:44
Sodium 135 mmol/L (135-145) 03/19/24 04:16
Potassium 4.5 mmol/L (3.5-5.1) 03/19/24 04:16
BUN 19 mg/dl (7-17) H 03/19/24 04:16
Creatinine 0.8 mg/dL (0.6-1.0) 03/19/24 04:16
Glucose 106 mg/dl (70-99) H 03/19/24 04:16
Vital Signs and I&O:
Vital Signs
Temp Pulse Resp BP Pulse Ox
98.2 F 74 20 111/54 94
03/19/24 07:43 03/19/24 07:45 03/19/24 07:43 03/19/24 08:46 03/19/24 07:43
Vital Signs
Temp Pulse Resp BP Pulse Ox
98.2 F 74 20 111/54 94
03/19/24 07:43 03/19/24 07:45 03/19/24 07:43 03/19/24 08:46 03/19/24 07:43
Intake & Output
03/17/24 03/18/24 03/19/24 03/20/24
07:59 07:59 07:59 07:59
Intake Total 480 / 480 770 / 770
Output Total 200 / 200 600 / 600 1375 / 1375
Balance 280 / 280 -600 / -600 -605 / -605
Physical Exam
Physical Exam
GEN: No distress, awake, alert, oriented x3.
HEENT: supple, anicteric, mmm, eomi
LUNGS: Few crackles B/L bases, no wheezes
CV: Reg, S1/S2, no murmur
ABD: soft, BS+, NT/ND
EXT: No cyanosis, clubbing, edema
NEURO: Gross non-focal
SKIN: Warm, pink, dry. No rash. Sternotomy scar
[2024-03-19] MEDS: TOPROL XL 12.5 MG PO (08:53)
--- NOTE | 2024-03-19 09:15 | W.DS.TRANS ---
DC Summary - Health And Nutrition Specialist
-
Discharge Instructions:
Sleep Apnea Risk Low
Discharge Diagnosis/Procedures CHF, cardiomyopathy, NSTEMI, distal LAD
occlusion
Diet 2 Gram Sodium
Activity No strenuous activity
Additional Activity no heavy lifting greater than 10 pounds for 1
week
Driving Restrictions As prior to admission
Bathing Restrictions None
Blood Work BMP in 1 week
Specialty Instructions Weigh Daily
Instructions: *DCA Heart Failure Instructions
Stand-Alone Forms: DC Instructions- Cath/EP Lab
Changes to Home Medications: Yes
Discharge Medications:
DC Medications w/original date entered in [employer]
lorazepam 0.5 mg tablet 0.25 mg PO HS Mental Health/Anxiety 11/20/18
umeclidinium 62.5 mcg-vilanterol 25 mcg/actuation powdr for inhalation (Anoro Ellipta) 1 inh inhalation DAILY copd 03/20/23
albuterol sulfate 2.5 mg/3 mL (0.083 %) solution for nebulization 2.5 mg inhalation DAILY Lung/Breathing Issues 08/27/23
budesonide 0.5 mg/2 mL suspension for nebulization 0.5 mg inhalation DAILY Lung/Breathing Issues 08/27/23
cholecalciferol (vitamin D3) 50 mcg (2,000 unit) capsule (Vitamin D3) 50 mcg PO DAILY Supplement 08/27/23
ibandronate 150 mg tablet 150 mg PO Q30D bone health 08/27/23
acetaminophen 500 mg tablet 1,000 mg PO Q6H PRN PAIN 09/03/23
atorvastatin 40 mg tablet 40 mg PO HS High Cholesterol 09/03/23
fluoxetine 40 mg capsule 40 mg PO DAILY Mental Health/Anxiety 09/03/23
aspirin 81 mg tablet,delayed release (Adult Aspirin Regimen) 81 mg PO DAILY Blood Clot Prevention/Tx 09/24/23
metoprolol succinate 25 mg tablet,extended release 24 hr 12.5 mg (1/2 x 25 mg) PO DAILY Blood pressure #90 tabs 09/27/23
albuterol sulfate 90 mcg/actuation aerosol inhaler 2 puff inhalation R Q4HPRN PRN shortness of breath 03/12/24
azithromycin 250 mg tablet 250 mg PO DAILY Infection 03/12/24
lorazepam 0.5 mg tablet 0.25 mg PO HS PRN insonmia or anxiety 03/12/24
apixaban 5 mg tablet (Eliquis) 5 mg PO BID #60 tabs 03/19/24
furosemide 20 mg tablet (Lasix) 20 mg PO MOWEFR #14 tabs 03/19/24
lisinopril 2.5 mg tablet 2.5 mg PO DAILY #30 tabs 03/19/24
pantoprazole 40 mg tablet,delayed release 40 mg PO DAILY #30 tabs 03/19/24
Home Medication Changes
eliquis, lasix, lisinopril, protonix are new
Pending Results: No
[2024-03-19] MEDS: BACITRACIN OINTMENT 1 APPLIC TOPICAL (11:34)
--- NOTE | 2024-03-19 14:43 | PTCARENOTE ---
Pt seen by Jeaneth Carlos, POWER SWEEPER OPERATOR, and PT. Pt tolerated lisinopril and metoprolol. Pt denies any lightheadedness. Telemetry and IV device removed. Discharge instructions reviewed with pt and her daughter regarding CHF guidelines, medications
and their possible side effects, wound care, activity restrictions, reporting cares and concerns and follow up lab work and appointments. Good understanding verbalized. Pt escorted out via wheelchair and discharged to home.
== END 2024-03-19 14:25 | disposition home or self-care (01) | DRG 280 ==
LOC: IVU 17:39
PROVIDERS: Internal Medicine Interventional Cardiology; Nuclear Medicine Nuclear Cardiology; Nurse Practitioner; Physician Assistant; ADMITTING PHYSICIAN Internal Medicine Cardiovascular Disease; CONSULT PHYSICIAN Internal Medicine Critical Care Medicine; EMERGENCY PHYSICIAN Emergency Medicine; FAMILY PHYSICIAN Family Medicine
PROC: 4A023N7 Measurement of Cardiac Sampling and Pressure, Left Heart, Percutaneous Approach (ICD-10-PCS; 2024-03-12)
PROC: B2111ZZ Fluoroscopy of Multiple Coronary Arteries using Low Osmolar Contrast (ICD-10-PCS; 2024-03-12)
PROC: B24BZZ4 Ultrasonography of Heart with Aorta, Transesophageal (ICD-10-PCS; 2024-03-15)
DX: I21.4 Non-ST elevation (NSTEMI) myocardial infarction (principal); I50.33 Acute on chronic diastolic (congestive) heart failure; E46 Unspecified protein-calorie malnutrition; R64 Cachexia; Z68.1 Body mass index [BMI] 19.9 or less, adult; I42.8 Other cardiomyopathies; I11.0 Hypertensive heart disease with heart failure; J43.9 Emphysema, unspecified; I08.1 Rheumatic disorders of both mitral and tricuspid valves; F32.A Depression, unspecified; F41.9 Anxiety disorder, unspecified; E78.00 Pure hypercholesterolemia, unspecified; H91.90 Unspecified hearing loss, unspecified ear; I27.22 Pulmonary hypertension due to left heart disease; I95.9 Hypotension, unspecified; R73.03 Prediabetes; I25.5 Ischemic cardiomyopathy; I25.10 Atherosclerotic heart disease of native coronary artery without angina pectoris; F17.200 Nicotine dependence, unspecified, uncomplicated; Z90.710 Acquired absence of both cervix and uterus; Z95.2 Presence of prosthetic heart valve; Z86.73 Personal history of transient ischemic attack (TIA), and cerebral infarction without residual deficits; Z98.82 Breast implant status; Z91.041 Radiographic dye allergy status; Z88.5 Allergy status to narcotic agent; Z88.8 Allergy status to other drugs, medicaments and biological substances; Z79.82 Long term (current) use of aspirin; Z86.16 Personal history of COVID-19
CPT/HCPCS: 71045; 71046; 80048; 80053; 80061; 82962; 83036; 83735; 83880; 84484; 85014; 85018; 85025; 85027; 85652; 85730; 86140; 93005; 93306; 93312; 93320; 93325; 93454; 94640; 96365; 96375; 97162; 97530; 99291; C1894; Q9967

== ENCOUNTER 2024-03-31 21:18 | Emergency (ER) | payer BC, MEDICARE, SELFPAY ==
[2024-03-31 21:21] VITALS: BP 105/55
--- NOTE | 2024-04-01 | ED.GENMED ---
History of Present Illness
General
Chief Complaint: Skin Problem
Source: patient and family
Time Seen by Provider: 03/31/24 22:30
Travel History
Have you had any contact with someone who has COVID-19?: No
Do you have any symptoms of coronavirus? Fever > 100 degrees, chills, cough, shortness of breath, sore throat, loss of taste or smell, muscle aches, or headache?: No
History of Present Illness
History of Present Illness:
68-year-old female presents to the emergency room complaining of pain and swelling in her left thumb. Patient had a cyst removed from this area couple weeks ago. Shortly after her thumb surgery the patient suffered an ID. She was actually
discharged on aspirin and Plavix after that event. When she followed up with Dr. Schmidt she had developed a hematoma at the surgical site. He open this at the office and drain the hematoma. Since then it has been reaccumulating. Area is
painful. Range of motion of thumb is intact. No fever or chills.
Past History
Past History
ED Past Medical History: COPD, Valvular disease (Mitral regurgitation, mitral stenosis) and Psychiatric (anxiety/depression)
ED Past Surgical History: Gynecological (hysterectomy) and Orthopedic (knee)
Social History
Tobacco: Smoker
Alcohol: None
Drug: None
Living: with family
Phy Exam
Physical Exam
Physical Exam:
General: Awake, Alert, Oriented X3. No acute distress.
Vitals: unremarkable
Head: Atraumatic
Eyes: Pupils equal, EOMI
Throat: Airway intact, no exudates
Neck: Trachea midline
Neuro: Nonfocal
Skin: Warm, dry, no rash
Extremities: pulses equal b/l, no edema. Left thumb has a large hematoma noted at the lateral aspect over the proximal phalanx. There appears to be an incision over the hematoma but it is not draining.
Course
Vital Signs
Initial and Last Documented VS:
Initial Vital Signs
Temp Pulse Resp BP Pulse Ox
97.6 F 59 16 105/55 99
03/31/24 21:21 03/31/24 21:21 03/31/24 21:21 03/31/24 21:21 03/31/24 21:21
Last Documented Vital Signs
Temp Pulse Resp BP Pulse Ox
97.6 F 60 16 110/60 99
03/31/24 21:21 04/01/24 00:18 04/01/24 00:18 04/01/24 00:18 04/01/24 00:18
MDM/Problems Addressed
Differential Diagnosis Includes:
Hematoma, abscess
MDM/Problems Addressed:
After discussion with Dr. Schmidt I instilled some 1% lidocaine with epinephrine into the existing incision. I then probed that incision to facilitate draining of the hematoma. This was successful. The cavity was completely evacuated of hematoma
and blood. A dressing was placed over the wound with an González wrap to apply pressure and hopefully prevent reaccumulation. Patient struck to leave it on for 2 days and then perform wound care as instructed by Dr. Schmidt.
*Pulse Oximetry
Patient hypoxic: no
*Critical Care Note
Total Time (30-74mins, 75-104mins- exclusive of procedures): Not Applicable
ED Attending Note
-
Portions of this chart may have been created with voice recognition software.� Occasional wrong word or��sound alike� substitutions may have occurred due to the inherent limitations of voice recognition software.
Discharge Plan
Departure
Patient Disposition: Home (Routine Discharge)
Date of Disposition: 04/01/24
Time of Disposition: 00:01
Patient with high blood pressure during this ER visit?: No
Condition: Good
Discharge Problem:
Hematoma of left thumb
Instructions: Hematoma
Prescriptions:
No Action
lorazepam 0.5 MG tablet
0.25 mg PO HS
Patient Comments:
11/20/18 per patient she takes 1/4 of a tablet one a day as needed last filled in [facility] 12/09/17 #90 for 30 days
Anoro Ellipta 62.5-25 mcg/actuation Blister With Device
1 inh INHALATION DAILY
albuterol sulfate 2.5 mg /3 mL (0.083 %) Solution For Nebulization
2.5 mg INHALATION DAILY
budesonide 0.5 mg/2 mL Suspension For Nebulization
0.5 mg INHALATION DAILY
ibandronate 150 mg Tablet
150 mg PO Q30D
cholecalciferol (vitamin D3) [Vitamin D3] 50 mcg (2,000 unit) Capsule
50 mcg PO DAILY
fluoxetine 40 mg Capsule
40 mg PO DAILY
acetaminophen 500 mg Tablet
1,000 mg PO Q6H PRN (Reason: PAIN)
atorvastatin 40 MG tablet
40 mg PO HS
aspirin [Adult Aspirin Regimen] 81 MG tablet,delayed release (DR/EC)
81 mg PO DAILY
metoprolol succinate 25 mg Tablet Extended Release 24 Hr
12.5 mg PO DAILY Qty: 90 2RF
azithromycin 250 mg tablet
250 mg PO DAILY
lorazepam 0.5 mg Tablet
0.25 mg PO HS PRN (Reason: insonmia or anxiety)
albuterol sulfate 90 mcg/actuation HFA aerosol inhaler
2 puff INHALATION R Q4HPRN PRN (Reason: shortness of breath)
Eliquis 5 mg Tablet
5 mg PO BID Qty: 60 5RF
pantoprazole 40 mg Tablet,Delayed Release (Dr/Ec)
40 mg PO DAILY Qty: 30 5RF
lisinopril 2.5 mg Tablet
2.5 mg PO DAILY Qty: 30 5RF
furosemide [Lasix] 20 mg tablet
20 mg PO MOWEFR Qty: 14 3RF
Referrals:
Scar Ramirez MD [Family Provider] -
Activity Restrictions/Additional Instructions:
Leave the pressure dressing in place for the next two days. Then return to cleaning it as instructed by Dr. Schmidt. Follow up as scheduled on Friday.
Interventions
Interventions:
*Risk Screen - Suicide Last Done: 03/31/24 22:24
*General Assessment Last Done: 03/31/24 21:21
*Neglect/Abuse Screening Last Done: 03/31/24 22:24
ED- Fall Risk Assessment Last Done: 03/31/24 22:24
*ED COVID-19 Vaccine History Last Done: 03/31/24 22:24
*Nursing Disposition Last Done: 04/01/24 00:18
ED-Skin Assessment Last Done: 03/31/24 22:35
Discharge Date and Time
Discharge Date/Time: 04/01/24 00:20
Print Language: NEPALI
[2024-04-01 00:18] VITALS: BP 110/60
== END 2024-04-01 00:20 | disposition home or self-care (01) ==
LOC: EMR 21:18
PROVIDERS: EMERGENCY PHYSICIAN Emergency Medicine; FAMILY PHYSICIAN Family Medicine
DX: S60.012A Contusion of left thumb without damage to nail, initial encounter (principal); X58.XXXA Exposure to other specified factors, initial encounter; F17.200 Nicotine dependence, unspecified, uncomplicated
CPT/HCPCS: 99283; 10060

== ENCOUNTER 2024-04-05 13:49 | Day surgery (SDC) | payer BC, SELFPAY ==
[2024-04-05 14:10] VITALS: BMI 18.6
[2024-04-05] MEDS: NORMOSOL-R 1000 IV (14:30)
[2024-04-05 14:34] VITALS: BP 147/61; BMI 18.6
[2024-04-05 16:15] VITALS: BP 125/43
[2024-04-05 16:30] VITALS: BP 133/49
[2024-04-05 16:45] VITALS: BP 137/56
[2024-04-05 17:00] VITALS: BP 143/63
== END 2024-04-05 17:18 | disposition home or self-care (01) ==
LOC: SDS 13:49
PROVIDERS: ATTENDING PHYSICIAN Orthopaedic Surgery Hand Surgery
DX: M96.840 Postprocedural hematoma of a musculoskeletal structure following a musculoskeletal system procedure (principal); Z98.890 Other specified postprocedural states
CPT/HCPCS: 10180

== ENCOUNTER → 2024-04-21 14:54 | Outpatient (REF) | payer BC, SELFPAY | LOC: RAD 14:54 | PROVIDERS: ATTENDING PHYSICIAN Thoracic Surgery (Cardiothoracic Vascular Surgery); FAMILY PHYSICIAN Family Medicine | DX: R60.9 Edema, unspecified (principal) | CPT/HCPCS: 93931 ==

== ENCOUNTER → 2024-05-25 14:54 | Outpatient (REF) | payer BC, SELFPAY | LOC: RAD 14:54 | PROVIDERS: ATTENDING PHYSICIAN Surgery Vascular Surgery; FAMILY PHYSICIAN Family Medicine | DX: I72.9 Aneurysm of unspecified site (principal) | CPT/HCPCS: 93931 ==

== ENCOUNTER 2024-05-31 08:36 | Day surgery (SDC) | payer BC, SELFPAY ==
[2024-05-31] VITALS (20 sets, daily range): BP systolic 99–141; BP diastolic 40–68
[2024-05-31] MEDS: NSS 500 IV (09:08)
[2024-05-31 09:17] LABS: Hematocrit 36.5 % (37.0-47.0); Hemoglobin 11.9 g/dL (12.0-16.0); Mean Corp Hgb Conc. 32.6 g/dL (33.0-37.0); Mean Corpuscular Hgb 30.4 pg (27.0-31.0); Mean Corpuscular Volume 93.4 fL (81.0-99.0); Mean Platelet Volume 8.1 fL (7.4-10.4); Platelet Count 360 10^3/uL (130-400); Red Blood Cell Count 3.91 10^6/uL (4.20-5.40); Red Cell Dist. Width 13.8 % (11.5-14.5); White Blood Cell Count 9.2 10^3/uL (4.8-10.8)
[2024-05-31 09:30] LABS: Blood Urea Nitrogen 15 mg/dl (7-17); Calcium 9.7 mg/dl (8.4-10.2); Carbon Dioxide 23 mmol/L (22-30); Chloride 106 mmol/L (98-107); Estimated Creatinine Clearance 40 ml/min; Glucose 104 mg/dl (70-99); Potassium 4.9 mmol/L (3.5-5.1); Sodium 139 mmol/L (135-145); eGFR > 60.00
--- NOTE | 2024-05-31 09:50 | W.SUR.PREOP ---
Pre-Operative Surgical Note
-
I have examined this patient prior to the performance of the scheduled procedure.
The patient's condition is unchanged from the time of the current History and
Physical and the patient is able to undergo the scheduled procedure.
--- NOTE | 2024-05-31 12:26 | OR.RPT ---
Operative Report
Operative Report
PROCEDURE DATE: 05/31/2024
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
Postoperative diagnosis: Same
Procedure: Repair of right radial artery pseudoaneurysm with excision of the pseudoaneurysm and end-to-end spatulated anastomosis of distal radial artery.
Surgeon: Tashi
Last Picker: Harrison, required for all aspects of procedure including assistance with traction/countertraction, following of suture line, assistance with closure.
Complications: None
Anesthesia: Regional nerve block, local anesthesia, sedation.
Indications for procedure:
Right radial artery pseudoaneurysm status post coronary catheterization. Was growing in size. Counseled about recommendations for repair. Risk/benefits/alternatives were all fully discussed. Patient understood all wish to proceed.
Description of procedure:
Patient was identified brought to the operating room placed on the table in supine position. After the adequate administration of anesthesia she was prepped and draped in the standard surgical fashion. A standard preoperative timeout was
undertaken and everybody was in agreement the plan. A longitudinal incision was made in the radial volar aspect of the right wrist that was carried through the skin and subcutaneous tissue. This was centered such at the center point was over lying
the pseudoaneurysm bulge. Dissection was carried through skin subcutaneous tissue with electrocautery. In the proximal aspect of the incision site, deeper dissection was undertaken and the radial artery was identified and carefully dissected away
from surrounding structures to great care to avoid any injury to structures. A vessel loop was passed around it which was double looped but not yet tightened. I now had proximal vascular control. I therefore then deepened my dissection on the
distal aspect of the incision site and identified the distal radial artery outflow. This was carefully circumferentially dissected as well and a vessel loop passed around it which was double looped but not yet tightened. Now I had proximal and
distal vascular control. I therefore then dissected the pseudoaneurysm capsule itself. It was completely dissected away from the surrounding structures mobilizing it completely. Careful dissection was undertaken. Once I had mobilized the
entirety of the pseudoaneurysm capsule as well as the proximal distal radial artery I noted that it was a widemouth opening. I could not just excise it directly off the radial artery. I therefore then transected at the base. (Prior to transecting
it however I did give the patient 3000 units of intravenous heparin, and I did clamp the radial artery proximally distally with bulldog clamps). I then sent the pseudoaneurysm capsule for specimen. I noted now that the neck/mouth of the
pseudoaneurysm was wide but the actual hole itself was small. The tissues were thickened around it. I could not just resect out the anterior aspect of the radial artery wall and then primarily repaired. Therefore I transected the portion of the
radial artery (approximately 1 cm or less) with the pseudoaneurysm neck contained in it. (The radial artery was transected proximally and distally on either side after full mobilization). As I mobilized the radial artery now I inspected the edges
proximally distally and they appeared clean. I therefore then spatulated the radial artery. Of note there was a little bit of thickening in the intima on the proximal aspect of the radial artery but I felt it was reasonable still. The inflow and
outflow bleeding was slightly weak initially at ran a 2 Sami Edita catheter gently carefully proximally distally. I did not really retrieve any clot. It just appeared that there was vasospasm. I was able to easily flush the artery proximally
distally with heparinized saline. Having spatulated the artery I then sewed an end-to-end anastomosis using running 7-0 Prolene suture. Prior to completing and tying to my suture line I backbled and forward bled the artery. There was excellent
pulsatile inflow and outflow backbleeding. I then completed and tied down my suture line. Next I released my bulldog clamps on the artery proximally distally and there is excellent pulsatile flow. When I compress/clamp the artery proximally,
there is still pulsatile flow (presuming retrograde intact arch flow). However when I listen with the Doppler the signal diminished when I compress/clamp the artery proximally suggesting that the inflow was good. At this point is very satisfied.
I irrigated. I had to meticulously achieve hemostasis as there was gentle oozing likely due to the inflammatory nature of the pseudoaneurysm as well as the patient's having been on Eliquis. A couple of 7-0 Prolene sutures in addition in a
[id number] fashion were placed along the suture line had a couple bleeding points. Protamine was given to reverse the heparin. Full hemostasis was achieved. We then closed in layers using 3-0 Vicryl followed by 4 Monocryl subcuticular
stitch. Dermabond was applied. The patient tolerated the procedure well.
--- NOTE | 2024-05-31 12:26 | W.SUR.POST ---
Surgical Immediate Post Op
Note
Pre Op Diagnosis: Right radial artery pseudoaneurysm
Post Op Diagnosis: Same
Procedure Performed: Right radial artery pseudoaneurysm repair
Primary Surgeon: Tashi
Assist: Harrison ROWAN
Anesthesia: Nerve block, local and sedation
Estimated Blood Loss: 10 cc
Fluids: See anesthesia flowsheet
Drains/Shunts: None
Specimens/Cultures: Pseudoaneurysm
Doppler/Duplex/Angio (Y/N): Y
Complications: None
Operative Findings: Palpable radial pulse upon completion
--- NOTE | 2024-05-31 14:03 | W.[place]-PDMP ---
[place]-PDMP
-
Checked the [place]- Pres[place] Drug Monitoring Program website, no red flags identified; safe to proceed with prescription.
== END 2024-05-31 14:35 | disposition home or self-care (01) ==
LOC: CATH 08:36
PROVIDERS: ATTENDING PHYSICIAN Surgery Vascular Surgery; FAMILY PHYSICIAN Family Medicine
DX: I72.1 Aneurysm of artery of upper extremity (principal); I34.0 Nonrheumatic mitral (valve) insufficiency; E78.00 Pure hypercholesterolemia, unspecified; Z86.73 Personal history of transient ischemic attack (TIA), and cerebral infarction without residual deficits; Z79.01 Long term (current) use of anticoagulants; Z79.82 Long term (current) use of aspirin
CPT/HCPCS: 35045; C1757; 88304; 80048; 85027; 86850; 86900; 86901

== ENCOUNTER → 2024-06-14 12:56 | Outpatient (REF) | payer BC, SELFPAY | LOC: HWRCS 12:56 | PROVIDERS: ATTENDING PHYSICIAN Thoracic Surgery (Cardiothoracic Vascular Surgery); FAMILY PHYSICIAN Family Medicine; REFERRING PHYSICIAN Internal Medicine Cardiovascular Disease | DX: Z95.2 Presence of prosthetic heart valve (principal) | CPT/HCPCS: 93306 ==

== ENCOUNTER 2024-06-21 11:21 | Emergency (ER) | payer BC, MEDICARE, SELFPAY ==
[2024-06-21 11:35] VITALS: BP 116/73
[2024-06-21 12:42] LABS: % Basophils 0.5 % (0-2); % Eosinophils 2.9 % (0-6); % Immature Granulocytes 0.6 % (0-0.5); % Lymphocytes 21.8 % (20.5-51.1); % Monocytes 10.8 % (1.7-9.3); % Neutrophils 63.4 % (42.2-75.2); Absolute Eosinophils 0.2 10^3/uL (0-0.7); Absolute Lymphocytes 1.4 10^3/uL (1.2-3.4); Absolute Monocytes 0.7 10^3/uL (0.1-0.6); Absolute Neutrophils 3.9 10^3/uL (1.4-6.5); Hematocrit 32.9 % (37.0-47.0); Mean Corp Hgb Conc. 33.4 g/dL (33.0-37.0); Mean Corpuscular Hgb 31.3 pg (27.0-31.0); Mean Corpuscular Volume 93.7 fL (81.0-99.0); Nucleated Red Blood Cells % 0 %; Platelet Count 288 10^3/uL (130-400); Red Blood Cell Count 3.51 10^6/uL (4.20-5.40); Red Cell Dist. Width 13.8 % (11.5-14.5); White Blood Cell Count 6.2 10^3/uL (4.8-10.8)
[2024-06-21 13:05] LABS: ALT (SGPT) 16 U/L (0-35); AST (SGOT) 34 U/L (14-36); Alkaline Phosphatase 109 U/L (38-126); Blood Urea Nitrogen 10 mg/dl (7-17); Calcium 9.2 mg/dl (8.4-10.2); Carbon Dioxide 21 mmol/L (22-30); Chloride 107 mmol/L (98-107); Glucose 99 mg/dl (70-99); Potassium 4.3 mmol/L (3.5-5.1); Sodium 136 mmol/L (135-145); Total Bilirubin 0.3 mg/dl (0.2-1.3); Total Protein 6.4 g/dl (6.3-8.2); eGFR 54.06
[2024-06-21 15:18] VITALS: BP 148/68
[2024-06-21 15:19] VITALS: BP 148/68
[2024-06-21 15:22] VITALS: BMI 19.7
[2024-06-21 16:00] VITALS: BP 164/67
--- NOTE | 2024-06-21 18:13 | ED.GENMED ---
History of Present Illness
General
Chief Complaint: Breathing Problem
Source: patient
Exam Limitations: none
Time Seen by Provider: 06/21/24 14:14
Nursing documentation reviewed up to this point in time: agreed with
History of Present Illness
History of Present Illness:
Patient to ED wt complaint of SOB. States she developed flu like symptoms om . Friday she tested pos for COVID. States she felt better yesterday, attempted to go to work today. States while at work she developed SOB. Brought self to ED
for eval. Denies fever/chills.
Past History
Past History
ED Past Medical History: CAD, COPD, Hypercholesterolemia, Valvular disease (Mitral regurgitation, mitral stenosis) and Psychiatric (anxiety/depression)
ED Past Surgical History: Gynecological (hysterectomy) and Orthopedic (knee)
Social History
Tobacco: Smoker
Alcohol: None
Drug: None
Living: with family
Review of Systems
Review of Systems
Allergies reviewed?: Yes
All Other Systems: ROS reviewed and negative except as documented in HPI and ROS
Constitutional: Reports no symptoms
EENT: Reports no symptoms
Respiratory: Reports cough and trouble breathing
Cardiac: Reports no symptoms
ABD/GI: Reports no symptoms
: Reports no symptoms
Musculoskeletal: Reports no symptoms
Skin: Reports no symptoms
Neurological: Reports no symptoms
Psychiatric: Reports no symptoms
Phy Exam
General Physical Exam
General Presentation: well appearing and no apparent distress
General age: appears stated age
General Skin: warm and dry
General Habitus: normal
Cardiovascular Exam
Cardiovascular Exam: regular rate/rhythm and no edema
Pulmonary Exam
Pulmonary Exam: lungs clear, no respiratory distress and chest non tender
Gastrointestinal Exam
Gastrointestinal Exam: non tender and soft
Musculoskeletal Exam
Musculoskeletal Exam: full ROM and neuro vasc intact
Skin Exam
Skin Exam: normal color, warm/dry and no rash
Psychiatric Exam
Psychiatric Exam: normal mood/affect
Scores
Heart Failure Risk
Heart Failure Risk Score: Not Applicable
Course
Orders/Labs/Results
Orders:
Orders
06/21/24 12:30
Complete Blood Count/With Diff Urgent
Comprehensive Metabolic Panel Urgent
06/21/24 14:22
Soft Tissue, Neck [CR Soft Tissue Neck ] Urgent
Comment:
Reason For Exam: FB sensation
06/21/24 14:23
CR Chest - 2 Views Urgent
Comment:
Reason For Exam: SOB, Covid pos
06/21/24 14:24
Electrocardiogram (*1) Urgent
Reason for Study: Shortness of Breath
EKG- Treatment ONCE
06/21/24 15:[address] [CT Neck W/o Iv Contrast] Urgent
Comment:
Reason For Exam: radiopaque FB on xray below epiglottis
Abnormal Lab Results
06/21/24
12:30
RBC 3.51 L 10^6/uL
(4.20-5.40)
Hgb 11.0 L g/dL
(12.0-16.0)
Hct 32.9 L %
(37.0-47.0)
MCH 31.3 H pg
(27.0-31.0)
Absolute Monos (auto) 0.7 H 10^3/uL
(0.1-0.6)
Immature Gran % 0.6 H %
(0-0.5)
Monocytes % 10.8 H %
(1.7-9.3)
Carbon Dioxide 21 L mmol/L
(22-30)
Creatinine 1.1 H mg/dL
(0.6-1.0)
06/21/24 12:30
06/21/24 12:30
Vital Signs
Initial and Last Documented VS:
Initial Vital Signs
Temp Pulse Resp BP Pulse Ox
97.3 F 77 20 116/73 99
06/21/24 11:35 06/21/24 11:35 06/21/24 11:35 06/21/24 11:35 06/21/24 11:35
Last Documented Vital Signs
Temp Pulse Resp BP Pulse Ox
98.0 F 66 18 164/67 97
06/21/24 15:19 06/21/24 15:19 06/21/24 15:19 06/21/24 16:00 06/21/24 16:30
*Radiology
Radiology exam reviewed: radiology read reviewed
*Pulse Oximetry
Patient hypoxic: no (99% RA)
*EKG
Interpretation: normal
Rate: normal
Rhythm: sinus
*Critical Care Note
Total Time (30-74mins, 75-104mins- exclusive of procedures): Not Applicable
ED Attending Note
-
Portions of this chart may have been created with voice recognition software.� Occasional wrong word or��sound alike� substitutions may have occurred due to the inherent limitations of voice recognition software.
Discharge Plan
Departure
Patient Disposition: Home (Routine Discharge)
Date of Disposition: 06/21/24
Time of Disposition: 18:14
Patient with high blood pressure during this ER visit?: No
Condition: Good
Covid-19: Not Applicable
Discharge Problem:
COVID-19
Instructions: COVID-19 ED
Prescriptions:
New
albuterol sulfate 90 mcg/actuation HFA aerosol inhaler
2 puff inhalation Q4HPRN PRN (Reason: shortness of breath or wheezing) Qty: 8.5 0RF
No Action
lorazepam 0.5 MG tablet
0.25 mg PO HS
Anoro Ellipta 62.5-25 mcg/actuation Blister With Device
1 inh INHALATION DAILY
albuterol sulfate 2.5 mg /3 mL (0.083 %) Solution For Nebulization
2.5 mg INHALATION DAILY
budesonide 0.5 mg/2 mL Suspension For Nebulization
0.5 mg INHALATION DAILY
ibandronate 150 mg Tablet
150 mg PO Q30D
cholecalciferol (vitamin D3) [Vitamin D3] 50 mcg (2,000 unit) Capsule
50 mcg PO DAILY
fluoxetine 40 mg Capsule
40 mg PO DAILY
acetaminophen 500 mg Tablet
1,000 mg PO Q6H PRN (Reason: PAIN)
atorvastatin 40 MG tablet
40 mg PO HS
metoprolol succinate 25 mg Tablet Extended Release 24 Hr
12.5 mg PO DAILY Qty: 90 2RF
azithromycin 250 mg tablet
250 mg PO DAILY
Rx Instructions:
for tx of COPD
lorazepam 0.5 mg Tablet
0.25 mg PO HS PRN (Reason: insonmia or anxiety)
albuterol sulfate 90 mcg/actuation HFA aerosol inhaler
2 puff INHALATION R Q4HPRN PRN (Reason: shortness of breath)
Eliquis 5 mg Tablet
5 mg PO BID Qty: 60 5RF
pantoprazole 40 mg Tablet,Delayed Release (Dr/Ec)
40 mg PO DAILY Qty: 30 5RF
lisinopril 2.5 mg Tablet
2.5 mg PO DAILY Qty: 30 5RF
Baby Aspirin
81 mg PO DAILY
acetaminophen-codeine 300-30 mg Tablet
1 tab PO Q4HPRN PRN (Reason: moderate pain) Qty: 10 0RF
Referrals:
Scar Ramirez MD [Family Provider] - Follow up in 2-3 days
Stand Alone Forms: Return to Work
Interventions
Interventions:
*Risk Screen - Suicide Last Done: 06/21/24 11:35
*General Assessment Last Done: 06/21/24 11:35
*Neglect/Abuse Screening Last Done: 06/21/24 11:35
ED- Fall Risk Assessment Last Done: 06/21/24 15:21
*ED COVID-19 Vaccine History Last Done: 06/21/24 15:21
ED- Pulmonary Assessment Last Done: 06/21/24 15:21
Discharge Date and Time
Print Language: AUSTR[place]
== END 2024-06-21 19:49 | disposition home or self-care (01) ==
LOC: EMR 11:21
PROVIDERS: Emergency Medicine; EMERGENCY PHYSICIAN Emergency Medicine; FAMILY PHYSICIAN Family Medicine
DX: U07.1 COVID-19 (principal); I25.10 Atherosclerotic heart disease of native coronary artery without angina pectoris; J44.9 Chronic obstructive pulmonary disease, unspecified; E78.00 Pure hypercholesterolemia, unspecified; I38 Endocarditis, valve unspecified; F17.200 Nicotine dependence, unspecified, uncomplicated; Q27.8 Other specified congenital malformations of peripheral vascular system; Z90.710 Acquired absence of both cervix and uterus
CPT/HCPCS: 99284; 70360; 70490; 71046; 80053; 85025; 93005

== ENCOUNTER → 2024-07-30 16:32 | Outpatient (REF) | payer BC, MEDICARE, SELFPAY | LOC: RAD 16:32 | PROVIDERS: ATTENDING PHYSICIAN Physician Assistant Medical; FAMILY PHYSICIAN Family Medicine | DX: R22.41 Localized swelling, mass and lump, right lower limb (principal) | CPT/HCPCS: 76882 ==

== ENCOUNTER → 2024-08-02 13:59 | Outpatient (REF) | payer BC, MEDICARE, SELFPAY | LOC: RAD 13:59 | PROVIDERS: ATTENDING PHYSICIAN Registered Nurse; FAMILY PHYSICIAN Family Medicine | DX: I72.1 Aneurysm of artery of upper extremity (principal) | CPT/HCPCS: 93931 ==

== ENCOUNTER → 2024-09-14 15:57 | Outpatient (REF) | payer BC, MEDICARE, SELFPAY | LOC: HWRAD 15:57 | PROVIDERS: ATTENDING PHYSICIAN Internal Medicine Critical Care Medicine; FAMILY PHYSICIAN Family Medicine | DX: Z87.891 Personal history of nicotine dependence (principal) | CPT/HCPCS: 71271 ==

== ENCOUNTER → 2025-08-10 09:05 | Outpatient (REF) | payer MEDICARE, SELFPAY | LOC: RAD 09:05 | PROVIDERS: ATTENDING PHYSICIAN Registered Nurse; FAMILY PHYSICIAN Family Medicine | DX: I72.9 Aneurysm of unspecified site (principal); I72.1 Aneurysm of artery of upper extremity | CPT/HCPCS: 93931 ==